=== PATIENT | female | born 1980 | race Caucasian/White ===

== ENCOUNTER 2018-06-01 20:01 | Emergency (ER) | payer OTHER, MEDICAID, SELFPAY ==
[2018-06-01 20:13] VITALS: BP 157/88; PULSE 117; RESP 20; TEMP 37.2; O2SAT 98; BMI 52.7
--- NOTE | 2018-06-01 20:18 | DI.RAD.S_ITS ---
PROCEDURE: XR CHEST 2V INDICATIONS: shortness of breath TECHNIQUE: 2 views of the chest were acquired. COMPARISON: [facility], XR CHEST 2V, 11/26/2017, 12:22. [facility], CHEST 1 VIEW, 04/07/2017, 16:36. [facility], , CHEST 2 VIEW, 10/02/2013, 19:48. [facility], CHEST 2 VIEW, 01/23/2012, 10:07. FINDINGS: Surgical changes and devices: None. Lungs and pleura: No pleural effusions or pneumothorax. Lungs are clear. Mediastinum: Mediastinal contours are normal. Heart size is normal. Bones and chest wall: No suspicious bony abnormalities. Soft tissues appear unremarkable. IMPRESSION: No acute cardiopulmonary disease. Dictated by: Joe Galarza M.D. on 06/01/2018 at 21:02 Approved by: Joe Galarza M.D. on 06/01/2018 at 21:04
--- NOTE | 2018-06-01 23:47 | ED.SOB ---
HPI - SOB/Dyspnea General Chief Complaint: Shortness of Breath/Dyspnea Stated Complaint: COUGH, CHEST PRESSURE, WOUND ON BACK Time Seen by Provider: 06/01/18 23:06 Source: patient Mode of arrival: ambulatory Limitations: no limitations History of Present Illness This is a 37-year-old female comes emergency department with complaint of some intermittent, tightness in her chest, she has had a cough that has been nonproductive. She has not had any fever she is aware of she has not noticed any sweats or chills. She said a little bit of upper respiratory congestion but mild. Patient states that she has felt short of breath intermittently. She is denying chest pain currently. She had some nausea no vomiting. No GI or urinary symptoms. She does have a history of diabetes and takes metformin and pioglitazone. Patient is also complaining of an abrasion or wound on her back she states she is not sure if it is any worse. she is also currently homeless she has been staying in her truck. Related Data Home Medications Medication Instructions Recorded Confirmed metformin [Glucophage XR] 5 tab PO QDAY #0 12/15/11 acetaminophen 1 - 2 tab PO Q6HP PRN #0 04/07/17 buspirone 1.5 tab PO HS #0 04/07/17 cetirizine 10 mg PO QDAY #0 04/07/17 clonazepam 0.5 - 1 mg PO QDAYP #0 04/07/17 clotrimazole 1 gm TOPICAL BID #0 04/07/17 cyclobenzaprine 1 - 2 tab PO TIDP PRN #0 04/07/17 furosemide 80 mg PO BID #0 04/07/17 meloxicam 15 mg PO QDAY #0 04/07/17 montelukast 10 mg PO QDAY #0 04/07/17 pioglitazone 30 mg PO QDAY #0 04/07/17 zolpidem 10 mg PO HSP PRN #0 04/07/17 Previous Rx's Medication Instructions Recorded CHLORHEXIDINE GLUCONATE 15 ml PO BID #473 ml 09/03/16 hydrocodone-acetaminophen [[place]] 1 tab PO Q6H PRN #7 tab 09/03/16 clindamycin HCl 300 mg PO Q6H #28 cap 04/29/17 mupirocin 0 danyelle TOPICAL TID #22 gm 04/29/17 azithromycin See Label Instructions .ROUTE 06/01/18 .COMPLEX #3 tab Allergies Allergy/AdvReac Type Severity Reaction Status Date / Time amoxicillin [From AUGMENTIN] Allergy Unknown Unverified 10/28/17 12:14 clavulanic acid Allergy Unknown Unverified 10/28/17 12:14 [From AUGMENTIN] Sulfa (Sulfonamide Allergy Unknown Unverified 10/28/17 12:14 Antibiotics) [SULFA (SULFONAMIDE ANTIBIOTICS)] Review of Systems Review of Systems All systems reviewed & are unremarkable except as noted in HPI and below Constitutional Denies chills and Denies fever(s) ENT Ears, Nose, Mouth, and Throat: Reports nasal congestion Cardiovascular Denies chest pain, Denies dyspnea and Reports dyspnea on exertion Respiratory Reports chest congestion, Reports cough, Denies excessive phlegm production, Denies pain on inspiration, Denies dyspnea, Reports dyspnea on exertion, Denies stridor and Reports wheezing Gastrointestinal Gastrointestinal: Denies abdominal pain, Denies change in bowel habits, Denies diarrhea, Reports nausea and Denies vomiting Genitourinary Reports as per HPI (currently on menses), Denies urinary frequency and Denies difficulty voiding Integumentary/Breasts Reports as per HPI (healing lesion) Allergic/Immunologic Reports wheezing PFSH Social History Smoking Status: Current every day smoker Exam Narrative Exam Narrative: GEN: Obese female, alert and oriented x 3, patient appears to be in mild distress. HEENT: Atraumatic, pupils are equal round reactive to light, extraocular movements are intact, nares clear rhinorrhea bilaterally, TMs are clear with no fluid. Throat is clear without any exudates, erythema, tonsillar enlargement or uvular deviation, patient has extensive facial hair HEART: Regular rate and rhythm without murmur, clicks, rubs. No carotid bruits, pulses are equal in upper and lower extremities LUNGS:Lungs clear to auscultation, no wheezes, rales, crackles, chest moves symmetrically ABD:bowel sounds normal, soft, non-tender, no guarding, rebound, rigidity, no masses noted, no hepatosplenomegaly :No CVA tenderness MSCL: Non-tender, no muscle atrophy full range of motion, normal gait NEURO:CN 2-12 intact, sensation normal SKIN: patient has a a linear wound on her right flank, Um it has about 4 cm in length and an additional 1 cm adjacent. It is in the horizontal plane. There is some mild skin breakdown through the superficial skin but no subcutaneous breakdown. The skin itself appears angry right at the wound but no drainage, it appears fairly scabbed over. There is no surrounding cellulitis or erythema, there is no foul odor, the area is not particularly tender to touch. IT does appear to be right where her pants would tend to rub. Initial Vital Signs Initial Vital Signs: Vital Signs Temperature 99 F 06/01/18 20:13 Pulse Rate 117 H 06/01/18 20:13 Respiratory Rate 20 06/01/18 20:13 Blood Pressure 157/88 H 06/01/18 20:13 Pulse Oximetry 98 06/01/18 20:13 Course Orders Ordered: ED Orders 06/01/18 20:18 Consult to Respiratory Therapy Evaluate & Treat XR chest 2V Stat EKG-12 Lead Stat Discontinued Medications Azithromycin (Zithromax) 500 mg PO NOW ONE Stop: 06/02/18 00:14 Last Admin: 06/02/18 00:15 Dose: 500 mg Azithromycin (Zithromax) 500 mg PO NOW ONE Stop: 06/02/18 00:14 Last Admin: 06/02/18 00:16 Dose: Not Given Prednisone (Deltasone 20 Mg Prepack) 1 bottle MISC SEEINSTR ONE Stop: 06/02/18 00:14 Last Admin: 06/02/18 00:15 Dose: 1 bottle Vital Signs - 8 hr 06/02/18 00:20 Pulse Rate 116 H Respiratory Rate 18 Blood Pressure 149/86 H Pulse Oximetry 97 MDM - SOB/Dyspnea Imaging Data Chest x-ray: Radiologist's impression: [address] [address] XRay Report Signed Patient: Roxane Hanley [facility]#: [id number] : 1980Acct:[id number] Age/Sex: 37 / FDate of Service: 06/01/18 Loc: ED Accession Number: [id number] Procedure: XR chest 2V Ordering Provider: Shonda Vazquez PROCEDURE: XR CHEST 2V INDICATIONS: shortness of breath TECHNIQUE: 2 views of the chest were acquired. [facility], CR, CHEST 1 VIEW, 04/07/2017, 16:36. [facility], CR, CHEST 2 VIEW, 10/02/2013, 19:48. [facility], CR, CHEST 2 VIEW, 01/23/2012, 10:07. FINDINGS: Surgical changes and devices: None. Lungs and pleura: No pleural effusions or pneumothorax. Lungs are clear. Mediastinum: Mediastinal contours are normal. Heart size is normal. Bones and chest wall: No suspicious bony abnormalities. Soft tissues appear unremarkable. IMPRESSION: No acute cardiopulmonary disease. Dictated by: Joe Galarza M.D. on 06/01/2018 at 21:02 Approved by: Joe Galarza M.D. on 06/01/2018 at 21:04 ECG Data Attestation: I personally reviewed and interpreted this ECG as follows: Prior ECG tracings: available for review Interpretation: Sinus tachycardia rate of 112 P are 166 QRS 89 and QTC of 381. No ST elevation or depression. Similar to prior EKG from 04/07/17 [facility] Narrative Medical decision making narrative: Patient has an albuterol inhaler which she has found helpful for her symptoms she had treatment that she gave herself about an hour or 2 prior to arrival. Patient has not had fevers, chest x-ray is negative. I suspect she has bronchitis she states she has had some asthma issues in the past. We discussed doing a short course of steroids. This will elevate her blood sugars and she is aware. Discharge Plan Departure Patient Disposition: Home Clinical Impression: Bronchitis Discharge Date/Time: 06/02/18 00:20 Interventions: ED Discharge Assessment Last Done: 06/02/18 00:20 Instructions: Acute Bronchitis Activity Restrictions/Additional Instructions: Follow-up in next 3-5 days for recheck if her symptoms are not improving. Take 3 tablets of the 10 mg prednisone once daily x3 days. Take azithromycin until completely gone. Return to the emergency department for fevers greater than 100.4, persistent difficulty with breathing, chest pain, shortness of breath, passing out, or other new or concerning symptoms. Prescriptions: New azithromycin 500 mg tablet See Label Instructions .ROUTE .COMPLEX Qty: 3 RF: 0 No Action metformin [Glucophage XR] 500 MG tablet extended release 24 hr 5 tab PO QDAY Qty: 0 RF: 0 hydrocodone-acetaminophen [[place]] 5 MG/325 MG tablet 1 tab PO Q6H PRNQty: 7 RF: 0 CHLORHEXIDINE GLUCONATE 15 ml PO BID Qty: 473 RF: 0 furosemide 80 MG tablet 80 mg PO BID Qty: 0 RF: 0 pioglitazone 30 MG tablet 30 mg PO QDAY Qty: 0 RF: 0 cetirizine 10 MG tablet 10 mg PO QDAY Qty: 0 RF: 0 montelukast 10 MG tablet 10 mg PO QDAY Qty: 0 RF: 0 buspirone 15 MG tablet 1.5 tab PO HS Qty: 0 RF: 0 zolpidem 10 MG tablet 10 mg PO HSP PRNQty: 0 RF: 0 acetaminophen 500 MG tablet 1 - 2 tab PO Q6HP PRNQty: 0 RF: 0 meloxicam 15 MG tablet 15 mg PO QDAY Qty: 0 RF: 0 clonazepam 0.5 MG tablet 0.5 - 1 mg PO QDAYP Qty: 0 RF: 0 cyclobenzaprine 5 MG tablet 1 - 2 tab PO TIDP PRNQty: 0 RF: 0 clotrimazole 1 % cream 1 gm Topical BID Qty: 0 RF: 0 mupirocin 2 % ointment Topical TID Qty: 22 RF: 0 clindamycin HCl 300 MG capsule 300 mg PO Q6H Qty: 28 RF: 0
--- NOTE | 2018-06-02 | ED_ITS ---
HPI - SOB/Dyspnea General Chief Complaint: Shortness of Breath/Dyspnea Stated Complaint: COUGH, CHEST PRESSURE, WOUND ON BACK Time Seen by Provider: 06/01/18 23:06 Source: patient Mode of arrival: ambulatory Limitations: no limitations History of Present Illness This is a 37-year-old female comes emergency department with complaint of some intermittent, tightness in her chest, she has had a cough that has been nonproductive. She has not had any fever she is aware of she has not noticed any sweats or chills. She said a little bit of upper respiratory congestion but mild. Patient states that she has felt short of breath intermittently. She is denying chest pain currently. She had some nausea no vomiting. No GI or urinary symptoms. She does have a history of diabetes and takes metformin and pioglitazone. Patient is also complaining of an abrasion or wound on her back she states she is not sure if it is any worse. she is also currently homeless she has been staying in her truck. Related Data Home Medications Medication Instructions Recorded Confirmed metformin [Glucophage XR] 5 tab PO QDAY #0 12/15/11 acetaminophen 1 - 2 tab PO Q6HP PRN #0 04/07/17 buspirone 1.5 tab PO HS #0 04/07/17 cetirizine 10 mg PO QDAY #0 04/07/17 clonazepam 0.5 - 1 mg PO QDAYP #0 04/07/17 clotrimazole 1 gm TOPICAL BID #0 04/07/17 cyclobenzaprine 1 - 2 tab PO TIDP PRN #0 04/07/17 furosemide 80 mg PO BID #0 04/07/17 meloxicam 15 mg PO QDAY #0 04/07/17 montelukast 10 mg PO QDAY #0 04/07/17 pioglitazone 30 mg PO QDAY #0 04/07/17 zolpidem 10 mg PO HSP PRN #0 04/07/17 Previous Rx's Medication Instructions Recorded CHLORHEXIDINE GLUCONATE 15 ml PO BID #473 ml 09/03/16 hydrocodone-acetaminophen [[place]] 1 tab PO Q6H PRN #7 tab 09/03/16 clindamycin HCl 300 mg PO Q6H #28 cap 04/29/17 mupirocin 0 danyelle TOPICAL TID #22 gm 04/29/17 azithromycin See Label Instructions .ROUTE 06/01/18 .COMPLEX #3 tab Allergies Allergy/AdvReac Type Severity Reaction Status Date / Time amoxicillin [From AUGMENTIN] Allergy Unknown Unverified 10/28/17 12:14 clavulanic acid Allergy Unknown Unverified 10/28/17 12:14 [From AUGMENTIN] Sulfa (Sulfonamide Allergy Unknown Unverified 10/28/17 12:14 Antibiotics) [SULFA (SULFONAMIDE ANTIBIOTICS)] Review of Systems Review of Systems All systems reviewed & are unremarkable except as noted in HPI and below Constitutional Denies chills and Denies fever(s) ENT Ears, Nose, Mouth, and Throat: Reports nasal congestion Cardiovascular Denies chest pain, Denies dyspnea and Reports dyspnea on exertion Respiratory Reports chest congestion, Reports cough, Denies excessive phlegm production, Denies pain on inspiration, Denies dyspnea, Reports dyspnea on exertion, Denies stridor and Reports wheezing Gastrointestinal Gastrointestinal: Denies abdominal pain, Denies change in bowel habits, Denies diarrhea, Reports nausea and Denies vomiting Genitourinary Reports as per HPI (currently on menses), Denies urinary frequency and Denies difficulty voiding Integumentary/Breasts Reports as per HPI (healing lesion) Allergic/Immunologic Reports wheezing PFSH Social History Smoking Status: Current every day smoker Exam Narrative Exam Narrative: GEN: Obese female, alert and oriented x 3, patient appears to be in mild distress. HEENT: Atraumatic, pupils are equal round reactive to light, extraocular movements are intact, nares clear rhinorrhea bilaterally, TMs are clear with no fluid. Throat is clear without any exudates, erythema, tonsillar enlargement or uvular deviation, patient has extensive facial hair HEART: Regular rate and rhythm without murmur, clicks, rubs. No carotid bruits , pulses are equal in upper and lower extremities LUNGS:Lungs clear to auscultation, no wheezes, rales, crackles, chest moves symmetrically ABD:bowel sounds normal, soft, non-tender, no guarding, rebound, rigidity, no masses noted, no hepatosplenomegaly :No CVA tenderness MSCL: Non-tender, no muscle atrophy full range of motion, normal gait NEURO:CN 2-12 intact, sensation normal SKIN: patient has a a linear wound on her right flank, Um it has about 4 cm in length and an additional 1 cm adjacent. It is in the horizontal plane. There is some mild skin breakdown through the superficial skin but no subcutaneous breakdown. The skin itself appears angry right at the wound but no drainage, it appears fairly scabbed over. There is no surrounding cellulitis or erythema , there is no foul odor, the area is not particularly tender to touch. IT does appear to be right where her pants would tend to rub. Initial Vital Signs Initial Vital Signs: Vital Signs Temperature 99 F 06/01/18 20:13 Pulse Rate 117 H 06/01/18 20:13 Respiratory Rate 20 06/01/18 20:13 Blood Pressure 157/88 H 06/01/18 20:13 Pulse Oximetry 98 06/01/18 20:13 Course Orders Ordered: ED Orders 06/01/18 20:18 Consult to Respiratory Therapy Evaluate & Treat XR chest 2V Stat EKG-12 Lead Stat Discontinued Medications Azithromycin (Zithromax) 500 mg PO NOW ONE Stop: 06/02/18 00:14 Last Admin: 06/02/18 00:15 Dose: 500 mg Azithromycin (Zithromax) 500 mg PO NOW ONE Stop: 06/02/18 00:14 Last Admin: 06/02/18 00:16 Dose: Not Given Prednisone (Deltasone 20 Mg Prepack) 1 bottle MISC SEEINSTR ONE Stop: 06/02/18 00:14 Last Admin: 06/02/18 00:15 Dose: 1 bottle Vital Signs - 8 hr 06/02/18 00:20 Pulse Rate 116 H Respiratory Rate 18 Blood Pressure 149/86 H Pulse Oximetry 97 MDM - SOB/Dyspnea Imaging Data Chest x-ray: Radiologist's impression: [address] [address] XRay Report Signed Patient: Roxane Hanley [facility]#: [id number] : 1980Acct:[id number] Age/Sex: 37 / FDate of Service: 06/01/18 Loc: ED Accession Number: [id number] Procedure: XR chest 2V Ordering Provider: Shonda Vazquez PROCEDURE: XR CHEST 2V INDICATIONS: shortness of breath TECHNIQUE: 2 views of the chest were acquired. [facility] 12[facility]. [facility], CR, CHEST 1 VIEW, 04/07/2017, 16:36. [facility], CR, CHEST 2 VIEW, 10/02/2013, 19:48. [facility], CR, CHEST 2 VIEW, 01/23/2012, 10:07. FINDINGS: Surgical changes and devices: None. Lungs and pleura: No pleural effusions or pneumothorax. Lungs are clear. Mediastinum: Mediastinal contours are normal. Heart size is normal. Bones and chest wall: No suspicious bony abnormalities. Soft tissues appear unremarkable. IMPRESSION: No acute cardiopulmonary disease. Dictated by: Joe Galarza M.D. on 06/01/2018 at 21:02 Approved by: Joe Galarza M.D. on 06/01/2018 at 21:04 ECG Data Attestation: I personally reviewed and interpreted this ECG as follows: Prior ECG tracings: available for review Interpretation: Sinus tachycardia rate of 112 P are 166 QRS 89 and QTC of 381. No ST elevation or depression. Similar to prior EKG from 04/07/17 [facility] Narrative Medical decision making narrative: Patient has an albuterol inhaler which she has found helpful for her symptoms she had treatment that she gave herself about an hour or 2 prior to arrival. Patient has not had fevers, chest x-ray is negative. I suspect she has bronchitis she states she has had some asthma issues in the past. We discussed doing a short course of steroids. This will elevate her blood sugars and she is aware. Discharge Plan Departure Patient Disposition: Home Clinical Impression: Bronchitis Discharge Date/Time: 06/02/18 00:20 Interventions: ED Discharge Assessment Last Done: 06/02/18 00:20 Instructions: Acute Bronchitis Activity Restrictions/Additional Instructions: Follow-up in next 3-5 days for recheck if her symptoms are not improving. Take 3 tablets of the 10 mg prednisone once daily x3 days. Take azithromycin until completely gone. Return to the emergency department for fevers greater than 100.4, persistent difficulty with breathing, chest pain, shortness of breath, passing out, or other new or concerning symptoms. Prescriptions: New azithromycin 500 mg tablet See Label Instructions .ROUTE .COMPLEX Qty: 3 RF: 0 No Action metformin [Glucophage XR] 500 MG tablet extended release 24 hr 5 tab PO QDAY Qty: 0 RF: 0 hydrocodone-acetaminophen [[place]] 5 MG/325 MG tablet 1 tab PO Q6H PRNQty: 7 RF: 0 CHLORHEXIDINE GLUCONATE 15 ml PO BID Qty: 473 RF: 0 furosemide 80 MG tablet 80 mg PO BID Qty: 0 RF: 0 pioglitazone 30 MG tablet 30 mg PO QDAY Qty: 0 RF: 0 cetirizine 10 MG tablet 10 mg PO QDAY Qty: 0 RF: 0 montelukast 10 MG tablet 10 mg PO QDAY Qty: 0 RF: 0 buspirone 15 MG tablet 1.5 tab PO HS Qty: 0 RF: 0 zolpidem 10 MG tablet 10 mg PO HSP PRNQty: 0 RF: 0 acetaminophen 500 MG tablet 1 - 2 tab PO Q6HP PRNQty: 0 RF: 0 meloxicam 15 MG tablet 15 mg PO QDAY Qty: 0 RF: 0 clonazepam 0.5 MG tablet 0.5 - 1 mg PO QDAYP Qty: 0 RF: 0 cyclobenzaprine 5 MG tablet 1 - 2 tab PO TIDP PRNQty: 0 RF: 0 clotrimazole 1 % cream 1 gm Topical BID Qty: 0 RF: 0 mupirocin 2 % ointment Topical TID Qty: 22 RF: 0 clindamycin HCl 300 MG capsule 300 mg PO Q6H Qty: 28 RF: 0
[2018-06-02] MEDS: predniSONE 20 MG PREPACK 1 BOTTLE MISC (00:15)
[2018-06-02] MEDS: AZITHROMYCIN 250 MG TABLET 500 MG PO (00:15)
[2018-06-02 00:20] VITALS: BP 149/86; PULSE 116; RESP 18; O2SAT 97
== END 2018-06-02 00:20 | disposition home or self-care (01) ==
PROVIDERS: Emergency Provider Emergency Medicine
DX: J40 Bronchitis, not specified as acute or chronic (principal)
CPT/HCPCS: 71046; 93005; 99282; 99284

== ENCOUNTER 2018-06-03 21:23 | Emergency (ER) | payer OTHER, MEDICAID, SELFPAY ==
--- NOTE | 2018-06-03 21:34 | DI.RAD.S_ITS ---
PROCEDURE: XR CHEST 1V INDICATIONS: Cough with chest pain TECHNIQUE: One view of the chest was acquired. COMPARISON: [facility], CR, XR CHEST 2V, 06/01/2018, 20:21. FINDINGS: Surgical changes and devices: None. Lungs and pleura: No pleural effusions or pneumothorax. Lungs are clear. Mediastinum: Mediastinal contours appear normal. Heart size is normal. Bones and chest wall: No suspicious bony lesions. Overlying soft tissues appear unremarkable. IMPRESSION: No acute process. Dictated by: Emeka Berger M.D. on 06/03/2018 at 21:54 Approved by: Emeka Berger M.D. on 06/03/2018 at 21:54
[2018-06-03 21:35] VITALS: BP 128/104; PULSE 122; RESP 20; TEMP 36.7; O2SAT 96; BMI 52.7
--- NOTE | 2018-06-03 21:43 | ED.CHESTPAIN ---
HPI - Chest Pain General Chief Complaint: Chest Pain Stated Complaint: COUGH, LT LUNG PAIN Time Seen by Provider: 06/03/18 21:33 Source: patient Mode of arrival: ambulatory Limitations: no limitations History of Present Illness HPI narrative: Patient is a 37-year-old female seen here in the emergency department a couple days ago and diagnosed with bronchitis. She was sent home with a prescription for an albuterol inhaler and also prednisone. She states she has taken 1 dose of the prednisone but did not take it today because she states that after she took the prednisone her throat started to swell. She states she has not been using her inhaler because it is difficult for her to take a big deep breath. No fevers. She states she is currently on azithromycin. Came in today because she has continued symptoms. Related Data Home Medications Medication Instructions Recorded Confirmed metformin [Glucophage XR] 5 tab PO QDAY #0 12/15/11 acetaminophen 1 - 2 tab PO Q6HP PRN #0 04/07/17 buspirone 1.5 tab PO HS #0 04/07/17 cetirizine 10 mg PO QDAY #0 04/07/17 clonazepam 0.5 - 1 mg PO QDAYP #0 04/07/17 clotrimazole 1 gm TOPICAL BID #0 04/07/17 cyclobenzaprine 1 - 2 tab PO TIDP PRN #0 04/07/17 furosemide 80 mg PO BID #0 04/07/17 meloxicam 15 mg PO QDAY #0 04/07/17 montelukast 10 mg PO QDAY #0 04/07/17 pioglitazone 30 mg PO QDAY #0 04/07/17 zolpidem 10 mg PO HSP PRN #0 04/07/17 Previous Rx's Medication Instructions Recorded CHLORHEXIDINE GLUCONATE 15 ml PO BID #473 ml 09/03/16 hydrocodone-acetaminophen [[place]] 1 tab PO Q6H PRN #7 tab 09/03/16 clindamycin HCl 300 mg PO Q6H #28 cap 04/29/17 mupirocin 0 danyelle TOPICAL TID #22 gm 04/29/17 azithromycin See Label Instructions .ROUTE 06/01/18 .COMPLEX #3 tab guaifenesin 200 mg PO Q4H PRN #20 tab 06/04/18 Allergies Allergy/AdvReac Type Severity Reaction Status Date / Time amoxicillin [From AUGMENTIN] Allergy Unknown Verified 06/03/18 21:35 clavulanic acid Allergy Unknown Verified 06/03/18 21:35 [From AUGMENTIN] Sulfa (Sulfonamide Allergy Unknown Verified 06/03/18 21:35 Antibiotics) [SULFA (SULFONAMIDE ANTIBIOTICS)] Review of Systems Constitutional Reports fatigue and Denies fever(s) Cardiovascular Denies chest pain, Reports leg edema and Reports dyspnea Respiratory Reports chest congestion, Reports cough, Reports pain with cough and Reports dyspnea Gastrointestinal Gastrointestinal: Denies abdominal pain, Denies nausea and Denies vomiting Musculoskeletal Denies myalgias and Denies arthralgias Integumentary/Breasts Denies lesions and Denies rash Endocrine Reports fatigue PFSH Medical History Diabetes (Acute) Edema (Acute) Insomnia (Acute) Surgical History No pertinent past surgical history (Acute) Social History Smoking Status: Current every day smoker Exam Initial Vital Signs Initial Vital Signs: Vital Signs Temperature 98.0 F 06/03/18 21:35 Pulse Rate 122 H 06/03/18 21:35 Respiratory Rate 20 06/03/18 21:35 Blood Pressure 128/104 H 06/03/18 21:35 Pulse Oximetry 96 06/03/18 21:35 Const General: cooperative, healthy appearing, comfortable and well developed [facility] Head: normal to inspection and normocephalic Resp Effort & Inspection: normal respiratory effort, no audible wheezes, no cough, no grunting and not labored Auscultation: clear to auscultation bilaterally Cardio Rate: bradycardic Rhythm: regular rhythm Pulses: radial pulses present Skin Rashes: no rashes Hair: other (Extensive facial hair) Neuro General: alert, awake and oriented x3 Extrem General: normal to inspection and capillary refill normal Psych Appearance: grossly normal and well kempt Course Orders Ordered: ED Orders 06/03/18 21:34 XR chest 1V Stat 06/03/18 21:35 EKG-12 Lead Stat 06/03/18 22:05 CT angio chest PE protocol Stat 06/03/18 22:25 B Type Natriuretic Peptide Stat Basic Metabolic Panel Stat Complete Blood Count AUTO DIFF Stat Troponin I Stat Discontinued Medications Sodium Chloride (Normal Saline 0.9%) 1,000 mls @ 1,000 mls/hr IV BOLUS ONE Stop: 06/03/18 23:04 Last Infusion: 06/04/18 01:08 Dose: 0 mls/hr Admin: 06/03/18 22:35 Dose: 1,000 mls/hr Vital Signs - 8 hr 06/03/18 21:35 06/03/18 22:37 06/03/18 23:20 Temperature 98.0 F Pulse Rate 122 H 110 H 103 H Respiratory Rate 20 20 Blood Pressure 128/104 H Blood Pressure [Right Arm] 114/69 119/61 Pulse Oximetry 96 97 98 06/04/18 01:01 06/04/18 01:08 Temperature Pulse Rate 93 H 100 H Respiratory Rate 18 Blood Pressure 107/65 Blood Pressure [Right Arm] 107/65 Pulse Oximetry 95 95 MDM - Chest Pain Lab Data Attestation: I reviewed the patient's lab results. Result diagrams: 06/03/18 22:25 06/03/18 22:25 Lab Results 06/03/18 06/03/18 Range/Units 22:25 22:25 WBC 10.0 (4.5-11.0) X10^3/uL RBC 4.50 (4.0-5.2) X10^6/uL Hgb 13.3 (12.0-16.0) g/dL Hct 38.4 (36-46) % MCV 85.3 (80-100) fL MCH 29.5 (26-34) PG MCHC 34.6 (30-36) % RDW 12.8 (11.6-14.8) % Plt Count 267 (150-400) X10^3/uL Neut % (Auto) 70.5 (50-75) % Lymph % (Auto) 22.7 L (25-40) % Summers % (Auto) 5.0 (3-14) % Eos % (Auto) 0.9 L (2-4) % Baso % (Auto) 0.9 (0-2) % Neut # (Auto) 7100 H (6670-1126) /uL Sodium 138 (137-145) mmol/L Potassium 3.6 (3.4-5.1) mmol/L Chloride 103 (98-107) mmol/L Carbon Dioxide 23 (22-32) mmol/L BUN 10 (7-17) mg/dL Creatinine 0.50 L (0.52-1.04) mg/dL Estimated GFR > 60.0 (>60) mL/min BUN/Creatinine Ratio 20.0 (6-22) Glucose 135 H (70-100) mg/dL Calcium 8.5 (8.4-10.2) mg/dL Troponin I < 0.012 (0.01-0.034) ng/mL B-Natriuretic Peptide < 100.0 (<100) Imaging Data CT scan - chest: Radiologist's impression: No definitive central pulmonary embolus. Suboptimal opacification of the pulmonary arterial vasculature Chest x-ray: Attestation: I personally reviewed and interpreted this imaging study as follows: My impression: No pneumonia No pneumothorax Normal size heart ECG Data Attestation: I personally reviewed and interpreted this ECG as follows: Prior ECG tracings: not available for review Interpretation: Sinus tachycardia Ventricular rate of 106 Normal axis Normal QRS Normal QTC No ST T wave changes MDM Narrative Medical decision making narrative: Patient without signs of pulmonary embolism on the CT scan. Chest x-ray is unremarkable. Labs unremarkable. EKG unremarkable except for being tachycardic. Patient is currently on antibiotics. She also has steroids and inhaler at home. No indication to change her antibiotics. Patient is stable. Not in respiratory distress. Will hold on further workup for now. Patient was given return precautions. She expressed understanding and agreement with plan. Discharge Plan Departure Patient Disposition: Home Clinical Impression: Bronchitis Discharge Date/Time: 06/04/18 01:09 Interventions: ED Discharge Assessment Last Done: 06/04/18 01:08 Instructions: Acute Bronchitis, DI for Viral Upper Respiratory Infection -- Adult Activity Restrictions/Additional Instructions: Recommend you continue all of your medications as directed. Call your primary care doctor for a follow-up. Return to the emergency department for any new or worsening symptoms Prescriptions: New guaifenesin 200 mg tablet 200 mg PO Q4H PRN (Reason: cold symptoms) Qty: 20 RF: 0 No Action metformin [Glucophage XR] 500 MG tablet extended release 24 hr 5 tab PO QDAY Qty: 0 RF: 0 hydrocodone-acetaminophen [[place]] 5 MG/325 MG tablet 1 tab PO Q6H PRNQty: 7 RF: 0 CHLORHEXIDINE GLUCONATE 15 ml PO BID Qty: 473 RF: 0 furosemide 80 MG tablet 80 mg PO BID Qty: 0 RF: 0 pioglitazone 30 MG tablet 30 mg PO QDAY Qty: 0 RF: 0 cetirizine 10 MG tablet 10 mg PO QDAY Qty: 0 RF: 0 montelukast 10 MG tablet 10 mg PO QDAY Qty: 0 RF: 0 buspirone 15 MG tablet 1.5 tab PO HS Qty: 0 RF: 0 zolpidem 10 MG tablet 10 mg PO HSP PRNQty: 0 RF: 0 acetaminophen 500 MG tablet 1 - 2 tab PO Q6HP PRNQty: 0 RF: 0 meloxicam 15 MG tablet 15 mg PO QDAY Qty: 0 RF: 0 clonazepam 0.5 MG tablet 0.5 - 1 mg PO QDAYP Qty: 0 RF: 0 cyclobenzaprine 5 MG tablet 1 - 2 tab PO TIDP PRNQty: 0 RF: 0 clotrimazole 1 % cream 1 gm Topical BID Qty: 0 RF: 0 mupirocin 2 % ointment Topical TID Qty: 22 RF: 0 clindamycin HCl 300 MG capsule 300 mg PO Q6H Qty: 28 RF: 0 azithromycin 500 mg tablet See Label Instructions .ROUTE .COMPLEX Qty: 3 RF: 0
--- NOTE | 2018-06-03 21:51 | PC.NURSE ---
Pt was seen here two days ago with same symptoms. DX with bronchitis and sent home with prednisone. Pt states since taking prednisone, he feels like he has increased swelling in his throat. c/o difficulty swallowing . Has pringles and 2L soda at bedside. states chips is the only thing that he can tolerate swallowing. States original flu like symptoms first began at the end of April and there hasn't been any improvement. Did not take his prednisone today due to swelling in throat.
--- NOTE | 2018-06-03 22:05 | DI.CT.S_ITS ---
PROCEDURE: CT ANGIO CHEST PE PROTOCOL INDICATIONS: Chest pain, shortness of breath, tachycardia TECHNIQUE: After the administration of intravenous contrast, 2 mm thick sections acquired from the pulmonary apices to the posterior costophrenic angles. 3-dimensional maximum intensity projection (MIP) coronal and sagittal reformats were then acquired through the thorax. For radiation dose reduction, the following was used: automated exposure control, adjustment of mA and/or kV according to patient size. COMPARISON: [facility], CR, XR CHEST 1V, 06/03/2018, 21:40. FINDINGS: Image quality: Suboptimal due to poor opacification of the distal subsegmental pulmonary arteries Pulmonary arteries: Central pulmonary arteries are normal in size, and demonstrate no intraluminal filling defects to suggest gross pulmonary embolism. However, the distal subsegmental pulmonary arteries are not well evaluated due to incomplete opacification Lungs and pleura: Lungs are clear. No pleural effusions or pneumothorax. Central and peripheral airways are patent. Mediastinum: Heart size is normal, without pericardial effusion. No mediastinal or hilar adenopathy. Thoracic aorta is normal in caliber and enhancement. No evidence of aortic dissection or aneurysm. Esophagus is normal in caliber, without hiatal hernia. Bones and chest wall: No suspicious bony lesions. Ribs and thoracic spine appear intact throughout. Thyroid gland grossly unremarkable. No axillary or supraclavicular adenopathy. Abdomen: Visualized upper abdominal solid organs appear normal in the early arterial phase of enhancement. IMPRESSION: No gross or central pulmonary embolism however the distal subsegmental pulmonary arteries are not well evaluated due to poor contrast opacification. If there is sufficient clinical indication, further risk stratification with lower extremity ultrasound for DVT assessment could be performed, versus nuclear medicine V/Q scanning. No acute consolidation. Dictated by: Migel Gutierrez M.D. on 06/04/2018 at 7:31 Approved by: Migel Gutierrez M.D. on 06/04/2018 at 7:35
[2018-06-03] MEDS: SODIUM CHLORIDE 0.9% 1,000 ML 1000 ML IV (22:35)
[2018-06-03 22:37] VITALS: BP 114/69; PULSE 110; O2SAT 97
[2018-06-03 22:39] LABS: Add Manual Diff / Slide Review NO; Basophils Percent Auto 0.9 % (0-2); Eosinophils Percent Auto 0.9 % (2-4); Hematocrit 38.4 % (36-46); Hemoglobin 13.3 g/dL (12.0-16.0); Lymphocytes Percent Auto 22.7 % (25-40); Mean Corpuscular HGB Conc 34.6 % (30-36); Mean Corpuscular Hemoglobin 29.5 PG (26-34); Mean Corpuscular Volume 85.3 fL (80-100); Neutrophils Absolute Auto 7100 /uL (3000-5900); Neutrophils Percent Auto 70.5 % (50-75); Platelet Count 267 X10^3/uL (150-400); Red Cell Distribution Width 12.8 % (11.6-14.8)
[2018-06-03 22:47] LABS: HEMOLYSIS 28 (0-50); Sodium 138 mmol/L (137-145)
[2018-06-03 22:51] LABS: Blood Urea Nitrogen 10 mg/dL (7-17); Calcium 8.5 mg/dL (8.4-10.2); Carbon Dioxide 23 mmol/L (22-32); Chloride 103 mmol/L (98-107); Estimated Glomerular Filt Rate > 60.0 mL/min (>60); Glucose 135 mg/dL (70-100); Potassium 3.6 mmol/L (3.4-5.1)
[2018-06-03 23:02] LABS: Troponin I < 0.012 ng/mL (0.01-0.034)
[2018-06-03 23:07] LABS: B Type Natriuretic Peptide < 100.0 (<100)
[2018-06-03 23:20] VITALS: BP 119/61; PULSE 103; RESP 20; O2SAT 98
[2018-06-04 01:01] VITALS: BP 107/65; PULSE 93; O2SAT 95
[2018-06-04 01:08] VITALS: BP 107/65; PULSE 100; RESP 18; O2SAT 95
== END 2018-06-04 01:09 | disposition home or self-care (01) ==
PROVIDERS: Emergency Provider Emergency Medicine
DX: J40 Bronchitis, not specified as acute or chronic (principal)
CPT/HCPCS: 36591; 71045; 71275; 80048; 83880; 84484; 85025; 93005; 96360; 96361; 99283; 99285; Q9967

== ENCOUNTER 2019-04-15 15:12 | Emergency (ER) | payer OTHER, MEDICAID, SELFPAY ==
[2019-04-15 15:28] VITALS: BP 145/68; PULSE 115; RESP 28; TEMP 36.4; O2SAT 98; BMI 58.8
[2019-04-15 16:58] VITALS: PULSE 100; RESP 18; O2SAT 99
[2019-04-15 16:59] LABS: Add Manual Diff / Slide Review NO; Basophils Absolute Auto 100 /uL (0-100); Basophils Percent Auto 0.6 % (0-2); Eosinophils Absolute Auto 100 /uL (0-450); Eosinophils Percent Auto 1.7 % (2-4); Hematocrit 39.8 % (36-46); Hemoglobin 13.1 g/dL (12.0-16.0); Lymphocytes Absolute Auto 2200 /uL (1100-4500); Lymphocytes Percent Auto 26.1 % (25-40); Mean Corpuscular Hemoglobin 27.3 PG (26-34); Mean Corpuscular Volume 82.8 fL (80-100); Monocytes Absolute Auto 500 /uL (0-900); Monocytes Percent Auto 5.5 % (3-14); Neutrophils Absolute Auto 5600 /uL (1500-7000); Neutrophils Percent Auto 66.1 % (50-75); Platelet Count 245 X10^3/uL (150-400); Red Cell Distribution Width 15.7 % (11.6-14.8); White Blood Cell Count 8.5 X10^3/uL (4.5-11.0)
[2019-04-15 17:02] LABS: Pregnancy Test Urine Negative (Negative)
[2019-04-15 17:34] LABS: Lipase 86 U/L (23-300)
[2019-04-15 17:53] LABS: Lactate (Lactic Acid) 1.7 mmol/L (0.7-2.1)
[2019-04-15 17:55] VITALS: BP 120/62; PULSE 104; RESP 17; O2SAT 99
[2019-04-15 17:56] LABS: Procalcitonin < 0.05 ng/mL (<0.5)
--- NOTE | 2019-04-15 17:57 | ED.SKABFB ---
HPI - Skin/Abscess/Foreign Bdy <KATHY Gamboa - Last Filed: 04/16/19 00:19> General Chief complaint: Skin/Abscess/Foreign Body Stated complaint: open sores on thighs and right ankle Time Seen by Provider: 04/15/19 15:22 Source: patient Mode of arrival: Ambulatory Limitations: no limitations History of Present Illness HPI narrative: This is a 38-year-old female, smoker, who presents with significant other with chief complain of excoriated multiple sores on her buttocks and inner thighs and right lateral ankle drainage. Patient reports she also saw blood in her pants and had hematuria 2 days ago which resolved for a day and recurring today. Patient is homeless and her boyfriend states he tried to do his best to take care of her wounds but they do not have adequate supplies for this. Patient reports she was discharged from wound Care Clinic in [facility] after she was treated for a month. She was evaluated with blood test and abdominal CT scan at [facility] 2 days ago and was advised to follow up with her primary care physician at [facility] and to follow up with child care worker for resources. LMP was 03/22/19, she is sexually active but does not have any concerns for unusual vaginal discharge or complaints. She denies fever, chills, nausea or vomiting, or abdominal or flank pain. Related Data Home Medications Medication Instructions Recorded Confirmed metformin [Glucophage XR] 2,000 mg PO DAILY #0 12/15/11 04/15/19 cetirizine 10 mg PO DAILY #0 04/07/17 04/15/19 meloxicam 15 mg PO DAILY #0 04/07/17 04/15/19 montelukast 10 mg PO DAILY #0 04/07/17 04/15/19 PNV,calcium [id number] acid 1 tab PO DAILY 04/15/19 04/15/19 [PrePlus] acetaminophen [Pain Reliever] 325 mg PO Q4H PRN MDD 6 tabs 04/15/19 04/15/19 cephalexin 500 mg PO QID 04/15/19 clonazepam 0.5 - 1 mg PO PRN PRN MDD 1.5 mg 04/15/19 04/15/19 cyclobenzaprine 10 mg PO TID PRN 04/15/19 04/15/19 pioglitazone 15 mg PO DAILY 04/15/19 04/15/19 venlafaxine 150 mg PO DAILY 04/15/19 04/15/19 Allergies Allergy/AdvReac Type Severity Reaction Status Date / Time amoxicillin [From AUGMENTIN] Allergy Unknown Verified 04/15/19 15:28 clavulanic acid Allergy Unknown Verified 04/15/19 15:28 [From AUGMENTIN] Sulfa (Sulfonamide Allergy Unknown Verified 04/15/19 15:28 Antibiotics) [SULFA (SULFONAMIDE ANTIBIOTICS)] Review of Systems <KATHY Gamboa - Last Filed: 04/16/19 00:19> Review of Systems Narrative: General: Denies fever, chills, fatigue, malaise, sweats. HEENT: Denies sinus pain, ear pain, sore throat, difficulty swallowing, dizziness. Respiratory: Denies dyspnea, cough, wheezing, hemoptysis, sputum. Cardiovascular: Denies chest pain, palpitations, orthopnea, edema. Gastrointestinal: Denies nausea, vomiting, abdominal pain, diarrhea, constipation, melena. : Reports odorous urine and hematuria. Denies dysuria, frequency, incontinence, urinary retention. Musculoskeletal: Denies weakness, joint pain or bony pain. Skin: Reports skin lesions in perineum and inner thighs and right lateral ankle drainage from venous stasis. Denies other rash, skin lesions, or other. Neurologic: Denies weakness, headache, numbness, change in speech, confusion, seizures, incoordination. Psychiatric: No concerning psychosocial issues. 12-point review of systems is negative except for those stated above. PFSH <KATHY Gamboa - Last Filed: 04/16/19 00:19> Medical History (Updated 04/15/19 @ 23:54 by KATHY Gamboa) Asthma (Acute) Diabetes (Acute) Edema (Acute) Fibromyalgia (Acute) Homeless (Acute) Insomnia (Acute) Neuropathy (Acute) Venous stasis (Acute) Surgical History No pertinent past surgical history (Acute) Social History Smoking Status: Current every day smoker Social History household members: significant other housing: homeless Smoking Status: Current every day smoker Exam <KATHY Gamboa - Last Filed: 04/16/19 00:19> Narrative Exam Narrative: GEN: Alert, oriented x 3, well appearing and nourished, and in no acute distress. Head: Normal cephalic, atraumatic. No scalp or temporal tenderness, palpable mass or rash. EYES: Pupils are equal, round, and reactive to light and accommodation. Extraocular muscles are intact bilaterally. There is no subconjunctival hemorrhage, exudate and sclera non-icteric. ENT: Bilateral auditory canals and tympanic membranes clear. Hearing grossly intact. Nose without bleeding, purulent discharge or deviation. Facial sinuses nontender to palpate. Mucous membrane moist, no mucosal lesion. Throat without erythema, tonsillar hypertrophy or exudate. Uvula in midline, airway patent. Neck: Trachea in midline. No JVD, non-tender without lymphadenopathy. No masses or thyroid megaly. Supple, non-tender and no meningeal signs. CARDIAC: Tachycardia without murmurs, gallops, or rubs. No chest wall tenderness. Lower leg edema. No cyanosis or pallor. Capillary refill is less than 2 seconds. RESPIRATORY: Lungs are cleat to auscultate bilaterally. No cough, wheezes, rales, or rhonchi. No stridor, respiratory distress, increase work of breathing, or accessary muscle used. ABD: Abdomen soft, nontender and non-distended. No guarding or rebound tenderness to palpate. Bowel sounds are normal in all 4 quadrants. There is no palpable masses or organomegaly. Pelvic: Noted dark blood from pelvic/vaginal exam. No Cervical motion tenderness. EXT: Full painless ROM of all extremities with no loss of sensation, strength, effusion or edema. SKIN: Open multiple excoriated lesions without induration abscess on perineum and bilateral inner thighs. Lateral ankle open skin lesions and drainage with semi saturated old dressing. Warm, dry, normal color for patient. No erythema, lesions or rash over other visible areas. BACK: Nontender without deformity or crepitance. No flank tenderness. NEUROLOGICAL: Alert and oriented to place, time and person. Sensation and motor function intact bilaterally. No facial droops, dysphasia. PSYCHIATRIC: Good judgement and reason, without hallucinations, abnormal affect or abnormal behaviors during the examination. Initial Vital Signs Initial Vital Signs: Vital Signs Temperature 97.6 F 04/15/19 15:28 Pulse Rate 115 H 04/15/19 15:28 Respiratory Rate 28 H 04/15/19 15:28 Blood Pressure 145/68 H 04/15/19 15:28 Pulse Oximetry 98 04/15/19 15:28 <Dylan Hull DO - Last Filed: 04/19/19 06:39> Initial Vital Signs Initial Vital Signs: Vital Signs Temperature 97.6 F 04/15/19 15:28 Pulse Rate 115 H 04/15/19 15:28 Respiratory Rate 28 H 04/15/19 15:28 Blood Pressure 145/68 H 04/15/19 15:28 Pulse Oximetry 98 04/15/19 15:28 <Jasiel Leonardo DO - Last Filed: 04/23/19 00:07> Initial Vital Signs Initial Vital Signs: Vital Signs Temperature 97.6 F 04/15/19 15:28 Pulse Rate 115 H 04/15/19 15:28 Respiratory Rate 28 H 04/15/19 15:28 Blood Pressure 145/68 H 04/15/19 15:28 Pulse Oximetry 98 04/15/19 15:28 Scores <KATHY Gamboa Last Filed: 04/16/19 00:19> GCS Tasia coma scale eye opening: Spontaneous Tasia coma scale verbal response: Orientated Tasia coma scale motor response: Obey commands Tasia coma scale total score: 15 Course <KATHY Gamboa Last Filed: 04/16/19 00:19> Orders Ordered: Discontinued Medications Cephalexin HCl (Keflex) 500 mg PO NOW ONE Stop: 04/15/19 18:39 Last Admin: 04/15/19 18:47 Dose: 500 mg Documented by: [facility]INGTO Vital Signs Vital signs: Vital Signs - 8 hr 04/15/19 16:58 04/15/19 17:55 04/15/19 18:45 Pulse Rate 100 H 104 H 87 Respiratory Rate 18 17 17 Blood Pressure [Right Arm] 120/62 152/75 H Pulse Oximetry 99 99 96 <DO Lalitha Mckee Last Filed: 04/19/19 06:39> Course Course Narrative: Wound cultures have resulted late this evening. Patient currently on Keflex as prescribed by an outside facility. 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 For this reason I have requested nursing call in Cipro 500 1 PO BID x10 days Orders Ordered: Discontinued Medications Cephalexin HCl (Keflex) 500 mg PO NOW ONE Stop: 04/15/19 18:39 Last Admin: 04/15/19 18:47 Dose: 500 mg Documented by: [facility] Vital Signs Vital signs: Vital Signs - 8 hr 04/15/19 16:58 04/15/19 17:55 04/15/19 18:45 Pulse Rate 100 H 104 H 87 Respiratory Rate 18 17 17 Blood Pressure [Right Arm] 120/62 152/75 H Pulse Oximetry 99 99 96 <Jasiel Leonardo DO - Last Filed: 04/23/19 00:07> Orders Ordered: Discontinued Medications Cephalexin HCl (Keflex) 500 mg PO NOW ONE Stop: 04/15/19 18:39 Last Admin: 04/15/19 18:47 Dose: 500 mg [facility] Vital Signs Vital signs: Vital Signs - 8 hr 04/15/19 16:58 04/15/19 17:55 04/15/19 18:45 Pulse Rate 100 H 104 H 87 Respiratory Rate 18 17 17 Blood Pressure [Right Arm] 120/62 152/75 H Pulse Oximetry 99 99 96 MDM - Skin/Abscess/Foreign Bdy <KATHY Gamboa - Last Filed: 04/16/19 00:19> Differential Diagnosis Differential diagnosis: Likely other (bladder infection, mentrual period, hematuria, cellulitis, sepsis, stasis dermatitis) Medical Records Attestation: I reviewed the patient's medical records. Lab Data Attestation: I reviewed the patient's lab results. Result diagrams: 04/15/19 16:44 Labs: Lab Results 04/15/19 04/15/19 04/15/19 Range/Units 16:30 16:38 16:44 WBC 8.5 (4.5-11.0) X10^3/uL RBC 4.80 (4.0-5.2) X10^6/uL Hgb 13.1 (12.0-16.0) g/dL Hct 39.8 (36-46) % MCV 82.8 (80-100) fL MCH 27.3 (26-34) PG MCHC 33.0 (30-36) % RDW 15.7 H (11.6-14.8) % Plt Count 245 (150-400) X10^3/uL Neut % (Auto) 66.1 (50-75) % Lymph % (Auto) 26.1 (25-40) % Weld % (Auto) 5.5 (3-14) % Eos % (Auto) 1.7 L (2-4) % Baso % (Auto) 0.6 (0-2) % Neut # (Auto) 5600 (5636-3499) /uL Lymph # (Auto) 2200 (6562-6172) /uL Weld # (Auto) 500 (0-900) /uL Eos # (Auto) 100 (0-450) /uL Baso # (Auto) 100 (0-100) /uL Lactate Lipase (23-300) U/L Procalcitonin (<0.5) ng/mL Urine Color Yellow Urine Appearance Clear Urine pH 5.5 (4.5-8.0) Ur Specific [place] 1.010 (1.000-1.035) Urine Protein Trace H (Negative) Urine Glucose (UA) Negative (Negative) g/dL Urine Ketones Negative (NEGATIVE) Urine Occult Blood 3+ H (Negative) Urine Nitrate Negative (Negative) Urine Bilirubin Negative (NEGATIVE) Urine Urobilinogen 0.2 (0.2) E.U./dL Ur Leukocyte Esterase Trace H (NEGATIVE) Urine RBC 10-30/hpf H (0-5/HPF) Urine WBC 1-5/hpf (0-5/HPF) Ur Squamous Epith Cells 5-10 /hpf H (0-5/HPF) Urine Bacteria None seen (None) Ur Culture Indicated? Cult not indicated Urine Test Negative (Negative) 04/15/19 04/15/19 04/15/19 Range/Units 16:44 16:44 16:44 WBC (4.5-11.0) X10^3/uL RBC (4.0-5.2) X10^6/uL Hgb (12.0-16.0) g/dL Hct (36-46) % MCV (80-100) fL MCH (26-34) PG MCHC (30-36) % RDW (11.6-14.8) % Plt Count (150-400) X10^3/uL Neut % (Auto) (50-75) % Lymph % (Auto) (25-40) % Weld % (Auto) (3-14) % Eos % (Auto) (2-4) % Baso % (Auto) (0-2) % Neut # (Auto) (1779-6374) /uL Lymph # (Auto) (8084-0965) /uL Weld # (Auto) (0-900) /uL Eos # (Auto) (0-450) /uL Baso # (Auto) (0-100) /uL Lactate Cancelled Lipase (23-300) U/L Procalcitonin < 0.05 Cancelled (<0.5) ng/mL Urine Color Urine Appearance Urine pH (4.5-8.0) Ur Specific [place] (1.000-1.035) Urine Protein (Negative) Urine Glucose (UA) (Negative) g/dL Urine Ketones (NEGATIVE) Urine Occult Blood (Negative) Urine Nitrate (Negative) Urine Bilirubin (NEGATIVE) Urine Urobilinogen (0.2) E.U./dL Ur Leukocyte Esterase (NEGATIVE) Urine RBC (0-5/HPF) Urine WBC (0-5/HPF) Ur Squamous Epith Cells (0-5/HPF) Urine Bacteria (None) Ur Culture Indicated? Urine Test (Negative) 04/15/19 04/15/19 Range/Units 17:03 17:05 WBC (4.5-11.0) X10^3/uL RBC (4.0-5.2) X10^6/uL Hgb (12.0-16.0) g/dL Hct (36-46) % MCV (80-100) fL MCH (26-34) PG MCHC (30-36) % RDW (11.6-14.8) % Plt Count (150-400) X10^3/uL Neut % (Auto) (50-75) % Lymph % (Auto) (25-40) % Weld % (Auto) (3-14) % Eos % (Auto) (2-4) % Baso % (Auto) (0-2) % Neut # (Auto) (5022-0585) /uL Lymph # (Auto) (0336-1114) /uL Weld # (Auto) (0-900) /uL Eos # (Auto) (0-450) /uL Baso # (Auto) (0-100) /uL Lactate 1.7 Lipase 86 (23-300) U/L Procalcitonin (<0.5) ng/mL Urine Color Urine Appearance Urine pH (4.5-8.0) Ur Specific [place] (1.000-1.035) Urine Protein (Negative) Urine Glucose (UA) (Negative) g/dL Urine Ketones (NEGATIVE) Urine Occult Blood (Negative) Urine Nitrate (Negative) Urine Bilirubin (NEGATIVE) Urine Urobilinogen (0.2) E.U./dL Ur Leukocyte Esterase (NEGATIVE) Urine RBC (0-5/HPF) Urine WBC (0-5/HPF) Ur Squamous Epith Cells (0-5/HPF) Urine Bacteria (None) Ur Culture Indicated? Urine Test (Negative) MDM Narrative Medical decision making narrative: This is a 38 year female, homeless, who presents with her significant other with skin lesions on her buttocks and inner thighs, right lateral ankle drainage and skin lesions and hematuria. Patient reports LMP was 03/22/19 and reports sexually active at this time. She was evaluated at [facility] emergency room 2 days ago with same chief complaints. CT of abdomen pelvis was done at that time with negative findings for renal mass, kidney stones. Patient's abdomen was soft and none painful to palpate, with normal bowel sounds in all quadrants. There was no leukocytosis with normal lactate. There was no flank pain for assessment and not consistent with pyelonephritis. Urine test is questionable contaminated sample with squamous epithelial cells, 3+ blood, urine RBC, urine WBC of 1 to 5. Urine test is being cultured at this time. During pelvic exam, noticed dried blood in her perineum area and noticed small amount of dark blood in vaginally canal and appears to be the patient is having menstrual period. The findings were shared with the patient. Patient had not sampler pickup the antibiotic medication that was prescribed by [facility] Emergency room 2 days ago for possible cellulitis. Patient is being treated with Keflex q.i.d. does for 7 days patient exam for cellulitis coverage and possible UTI treatment. Provided with home wound care supplies and advised to keep the dressing clean and intact. Patient advised to follow up with her primary care physician and Care Management next week for follow-up. Patient advised to follow up with CT IVP as [facility] emergency room suggested if patient continues to have hematuria after her period is over. Return precautions were discussed with the patient and patient verbalized understanding. Patient and significant other agree with treatment plan. <Dylan Hull, DO - Last Filed: 04/19/19 06:39> Lab Data Labs: Lab Results 04/15/19 04/15/19 04/15/19 Range/Units 16:30 16:38 16:44 WBC 8.5 (4.5-11.0) X10^3/uL RBC 4.80 (4.0-5.2) X10^6/uL Hgb 13.1 (12.0-16.0) g/dL Hct 39.8 (36-46) % MCV 82.8 (80-100) fL MCH 27.3 (26-34) PG MCHC 33.0 (30-36) % RDW 15.7 H (11.6-14.8) % Plt Count 245 (150-400) X10^3/uL Neut % (Auto) 66.1 (50-75) % Lymph % (Auto) 26.1 (25-40) % Weld % (Auto) 5.5 (3-14) % Eos % (Auto) 1.7 L (2-4) % Baso % (Auto) 0.6 (0-2) % Neut # (Auto) 5600 (4731-7375) /uL Lymph # (Auto) 2200 (2482-2320) /uL Weld # (Auto) 500 (0-900) /uL Eos # (Auto) 100 (0-450) /uL Baso # (Auto) 100 (0-100) /uL Lactate Lipase (23-300) U/L Procalcitonin (<0.5) ng/mL Urine Color Yellow Urine Appearance Clear Urine pH 5.5 (4.5-8.0) Ur Specific [place] 1.010 (1.000-1.035) Urine Protein Trace H (Negative) Urine Glucose (UA) Negative (Negative) g/dL Urine Ketones Negative (NEGATIVE) Urine Occult Blood 3+ H (Negative) Urine Nitrate Negative (Negative) Urine Bilirubin Negative (NEGATIVE) Urine Urobilinogen 0.2 (0.2) E.U./dL Ur Leukocyte Esterase Trace H (NEGATIVE) Urine RBC 10-30/hpf H (0-5/HPF) Urine WBC 1-5/hpf (0-5/HPF) Ur Squamous Epith Cells 5-10 /hpf H (0-5/HPF) Urine Bacteria None seen (None) Ur Culture Indicated? Cult not indicated Urine Test Negative (Negative) 04/15/19 04/15/19 04/15/19 Range/Units 16:44 16:44 16:44 WBC (4.5-11.0) X10^3/uL RBC (4.0-5.2) X10^6/uL Hgb (12.0-16.0) g/dL Hct (36-46) % MCV (80-100) fL MCH (26-34) PG MCHC (30-36) % RDW (11.6-14.8) % Plt Count (150-400) X10^3/uL Neut % (Auto) (50-75) % Lymph % (Auto) (25-40) % Weld % (Auto) (3-14) % Eos % (Auto) (2-4) % Baso % (Auto) (0-2) % Neut # (Auto) (4873-6013) /uL Lymph # (Auto) (2810-6063) /uL Weld # (Auto) (0-900) /uL Eos # (Auto) (0-450) /uL Baso # (Auto) (0-100) /uL Lactate Cancelled Lipase (23-300) U/L Procalcitonin < 0.05 Cancelled (<0.5) ng/mL Urine Color Urine Appearance Urine pH (4.5-8.0) Ur Specific [place] (1.000-1.035) Urine Protein (Negative) Urine Glucose (UA) (Negative) g/dL Urine Ketones (NEGATIVE) Urine Occult Blood (Negative) Urine Nitrate (Negative) Urine Bilirubin (NEGATIVE) Urine Urobilinogen (0.2) E.U./dL Ur Leukocyte Esterase (NEGATIVE) Urine RBC (0-5/HPF) Urine WBC (0-5/HPF) Ur Squamous Epith Cells (0-5/HPF) Urine Bacteria (None) Ur Culture Indicated? Urine Test (Negative) 04/15/19 04/15/19 Range/Units 17:03 17:05 WBC (4.5-11.0) X10^3/uL RBC (4.0-5.2) X10^6/uL Hgb (12.0-16.0) g/dL Hct (36-46) % MCV (80-100) fL MCH (26-34) PG MCHC (30-36) % RDW (11.6-14.8) % Plt Count (150-400) X10^3/uL Neut % (Auto) (50-75) % Lymph % (Auto) (25-40) % Weld % (Auto) (3-14) % Eos % (Auto) (2-4) % Baso % (Auto) (0-2) % Neut # (Auto) (9666-5646) /uL Lymph # (Auto) (9709-1174) /uL Weld # (Auto) (0-900) /uL Eos # (Auto) (0-450) /uL Baso # (Auto) (0-100) /uL Lactate 1.7 Lipase 86 (23-300) U/L Procalcitonin (<0.5) ng/mL Urine Color Urine Appearance Urine pH (4.5-8.0) Ur Specific [place] (1.000-1.035) Urine Protein (Negative) Urine Glucose (UA) (Negative) g/dL Urine Ketones (NEGATIVE) Urine Occult Blood (Negative) Urine Nitrate (Negative) Urine Bilirubin (NEGATIVE) Urine Urobilinogen (0.2) E.U./dL Ur Leukocyte Esterase (NEGATIVE) Urine RBC (0-5/HPF) Urine WBC (0-5/HPF) Ur Squamous Epith Cells (0-5/HPF) Urine Bacteria (None) Ur Culture Indicated? Urine Test (Negative) <Jasiel Leonardo, - Last Filed: 04/23/19 00:07> Lab Data Labs: Lab Results 04/15/19 04/15/19 04/15/19 Range/Units 16:30 16:38 16:44 WBC 8.5 (4.5-11.0) X10^3/uL RBC 4.80 (4.0-5.2) X10^6/uL Hgb 13.1 (12.0-16.0) g/dL Hct 39.8 (36-46) % MCV 82.8 (80-100) fL MCH 27.3 (26-34) PG MCHC 33.0 (30-36) % RDW 15.7 H (11.6-14.8) % Plt Count 245 (150-400) X10^3/uL Neut % (Auto) 66.1 (50-75) % Lymph % (Auto) 26.1 (25-40) % Weld % (Auto) 5.5 (3-14) % Eos % (Auto) 1.7 L (2-4) % Baso % (Auto) 0.6 (0-2) % Neut # (Auto) 5600 (3110-1524) /uL Lymph # (Auto) 2200 (2726-4733) /uL Weld # (Auto) 500 (0-900) /uL Eos # (Auto) 100 (0-450) /uL Baso # (Auto) 100 (0-100) /uL Lactate Lipase (23-300) U/L Procalcitonin (<0.5) ng/mL Urine Color Yellow Urine Appearance Clear Urine pH 5.5 (4.5-8.0) Ur Specific [place] 1.010 (1.000-1.035) Urine Protein Trace H (Negative) Urine Glucose (UA) Negative (Negative) g/dL Urine Ketones Negative (NEGATIVE) Urine Occult Blood 3+ H (Negative) Urine Nitrate Negative (Negative) Urine Bilirubin Negative (NEGATIVE) Urine Urobilinogen 0.2 (0.2) E.U./dL Ur Leukocyte Esterase Trace H (NEGATIVE) Urine RBC 10-30/hpf H (0-5/HPF) Urine WBC 1-5/hpf (0-5/HPF) Ur Squamous Epith Cells 5-10 /hpf H (0-5/HPF) Urine Bacteria None seen (None) Ur Culture Indicated? Cult not indicated Urine Test Negative (Negative) 04/15/19 04/15/19 04/15/19 Range/Units 16:44 16:44 16:44 WBC (4.5-11.0) X10^3/uL RBC (4.0-5.2) X10^6/uL Hgb (12.0-16.0) g/dL Hct (36-46) % MCV (80-100) fL MCH (26-34) PG MCHC (30-36) % RDW (11.6-14.8) % Plt Count (150-400) X10^3/uL Neut % (Auto) (50-75) % Lymph % (Auto) (25-40) % Weld % (Auto) (3-14) % Eos % (Auto) (2-4) % Baso % (Auto) (0-2) % Neut # (Auto) (4805-6615) /uL Lymph # (Auto) (0873-2957) /uL Weld # (Auto) (0-900) /uL Eos # (Auto) (0-450) /uL Baso # (Auto) (0-100) /uL Lactate Cancelled Lipase (23-300) U/L Procalcitonin < 0.05 Cancelled (<0.5) ng/mL Urine Color Urine Appearance Urine pH (4.5-8.0) Ur Specific [place] (1.000-1.035) Urine Protein (Negative) Urine Glucose (UA) (Negative) g/dL Urine Ketones (NEGATIVE) Urine Occult Blood (Negative) Urine Nitrate (Negative) Urine Bilirubin (NEGATIVE) Urine Urobilinogen (0.2) E.U./dL Ur Leukocyte Esterase (NEGATIVE) Urine RBC (0-5/HPF) Urine WBC (0-5/HPF) Ur Squamous Epith Cells (0-5/HPF) Urine Bacteria (None) Ur Culture Indicated? Urine Test (Negative) 04/15/19 04/15/19 Range/Units 17:03 17:05 WBC (4.5-11.0) X10^3/uL RBC (4.0-5.2) X10^6/uL Hgb (12.0-16.0) g/dL Hct (36-46) % MCV (80-100) fL MCH (26-34) PG MCHC (30-36) % RDW (11.6-14.8) % Plt Count (150-400) X10^3/uL Neut % (Auto) (50-75) % Lymph % (Auto) (25-40) % Weld % (Auto) (3-14) % Eos % (Auto) (2-4) % Baso % (Auto) (0-2) % Neut # (Auto) (2558-3584) /uL Lymph # (Auto) (1867-8967) /uL Weld # (Auto) (0-900) /uL Eos # (Auto) (0-450) /uL Baso # (Auto) (0-100) /uL Lactate 1.7 Lipase 86 (23-300) U/L Procalcitonin (<0.5) ng/mL Urine Color Urine Appearance Urine pH (4.5-8.0) Ur Specific [place] (1.000-1.035) Urine Protein (Negative) Urine Glucose (UA) (Negative) g/dL Urine Ketones (NEGATIVE) Urine Occult Blood (Negative) Urine Nitrate (Negative) Urine Bilirubin (NEGATIVE) Urine Urobilinogen (0.2) E.U./dL Ur Leukocyte Esterase (NEGATIVE) Urine RBC (0-5/HPF) Urine WBC (0-5/HPF) Ur Squamous Epith Cells (0-5/HPF) Urine Bacteria (None) Ur Culture Indicated? Urine Test (Negative) Discharge Plan Departure Patient Disposition: Home Clinical Impression: Cellulitis Qualifiers: Site of cellulitis: extremity Site of cellulitis of extremity: lower extremity Laterality: right Qualified Code(s): L03.115 - Cellulitis of right lower limb Skin ulcer Qualifiers: Non-pressure ulcer stage: limited to breakdown of skin Qualified Code(s): L98.491 - Non-pressure chronic ulcer of skin of other sites limited to breakdown of skin Discharge Date/Time: 04/15/19 18:56 Instructions: DI for Cellulitis -- Adult Activity Restrictions/Additional Instructions: You have been diagnosed with excoriated ulcers in inner thighs, cellulitis on left lateral ankle from venous stasis, menstrual period. There was no increase in white blood cell counts as severe infection. Blood tests were unremarkable. What to do: *Take your medications as directed. Please continue to take Keflex for next 7 days 4 times a day. Try to keep her wound clean and dry as much as you can. *Follow up with your primary care provider in 2-3 days at [facility] clinic and patient case coordinator, call for an appointment to arrange wound care, future CT IVP on upper urinary tract as [facility] ER suggested. Let them know you were seen in the ED and that we asked you to be seen in follow up. *Return to ED if you have any new, worsening, or concerning symptoms, such as [chest pain, breathing difficulty, severe pain/swelling/redness to right ankle and inner thighs, unable to tolerate fluids, or any acute concerns]. Prescriptions: No Action metformin [Glucophage XR] 500 MG tablet extended release 24 hr 2,000 mg PO DAILY Qty: 0 RF: 0 cetirizine 10 MG tablet 10 mg PO DAILY Qty: 0 RF: 0 montelukast 10 MG tablet 10 mg PO DAILY Qty: 0 RF: 0 meloxicam 15 MG tablet 15 mg PO DAILY Qty: 0 RF: 0 cyclobenzaprine 10 mg tablet 10 mg PO TID PRN (Reason: Muscle Spasm) RF: 0 pioglitazone 15 mg tablet 15 mg PO DAILY RF: 0 acetaminophen [Pain Reliever] 325 mg tablet 325 mg PO Q4H MDD 6 tabs PRN (Reason: Fever Or Pain) RF: 0 clonazepam 1 mg tablet 0.5 - 1 mg PO PRN MDD 1.5 mg PRN (Reason: severe anxiety) RF: 0 venlafaxine 150 mg capsule,extended release 24hr 150 mg PO DAILY RF: 0 cephalexin 500 mg capsule 500 mg PO QID RF: 0 PrePlus 27 mg iron- 1 mg tablet 1 tab PO DAILY RF: 0 <Jasiel Leonardo DO - Last Filed: 04/23/19 00:07> Sign Out Provider Sign Out Attestation: I was available for consultation during this patient's emergency department encounter
[2019-04-15 18:10] LABS: Appearance Urine UA CLEAR; Bacteria Urine None Seen; Bilirubin Urine UA NEGATIVE (NEGATIVE); Color Urine UA YELLOW; Glucose Urine UA NEGATIVE (Negative); Ketones Urine UA NEGATIVE (NEGATIVE); Leukocyte Esterase Urine UA TRACE (NEGATIVE); Nitrite Urine UA NEGATIVE (Negative); Occult Blood Urine UA 3+ (Negative); Protein Urine UA TRACE (Negative); Urobilinogen Urine UA 0.2 E.U./dL (0.2)
[2019-04-15 18:11] LABS: pH Urine UA 5.5 (4.5-8.0)
[2019-04-15 18:17] LABS: RBC Urine 10-30/HPF (0-5/HPF); Squamous Epithelial Cell Urine 5-10 /HPF (0-5/HPF); WBC Urine 1-5/HPF (0-5/HPF)
[2019-04-15 18:18] LABS: Culture Indicated Urine Cult Not Indicated
[2019-04-15 18:45] VITALS: BP 152/75; PULSE 87; RESP 17; O2SAT 96
[2019-04-15] MEDS: cephALEXin 250 MG CAPSULE 500 MG PO (18:47)
--- NOTE | 2019-04-15 18:53 | PC.NURSE ---
pt has a number of small 1cm and less lesions clustered on the lateral right ankle and lesions x 1.5cm to both medial upper thighs, all are pink with no purulent discharge at this time, surrounding tissue is pink, all lesions are painful
== END 2019-04-15 18:56 | disposition home or self-care (01) ==
PROVIDERS: Emergency Provider Nurse Practitioner Family
DX: L03.115 Cellulitis of right lower limb (principal); L98.491 Non-pressure chronic ulcer of skin of other sites limited to breakdown of skin
CPT/HCPCS: 81001; 81025; 83605; 83690; 84145; 85025; 87070; 87075; 87077; 87147; 87186; 87205; 99283

== ENCOUNTER → 2022-11-18 08:52 | Outpatient (CLI) | payer OTHER, MEDICAID, SELFPAY | PROVIDERS: PCP Family Medicine; Referring Provider Family Medicine; Visit Provider Surgery | DX: I89.0 Lymphedema, not elsewhere classified (principal); L97.822 Non-pressure chronic ulcer of other part of left lower leg with fat layer exposed; L97.812 Non-pressure chronic ulcer of other part of right lower leg with fat layer exposed; S70.312A Abrasion, left thigh, initial encounter; R60.0 Localized edema; M79.604 Pain in right leg; M79.605 Pain in left leg | CPT/HCPCS: 11042; 11045; 87070; 87075; 87077; 87147; 87186; 87205; 99204; 99213 ==

== ENCOUNTER → 2022-11-21 14:13 | Outpatient (CLI) | payer OTHER, MEDICAID, SELFPAY | PROVIDERS: PCP Family Medicine; Referring Provider Student in an Organized Health Care Education/Training Program; Visit Provider Nurse Practitioner Family | DX: I89.0 Lymphedema, not elsewhere classified (principal); L97.812 Non-pressure chronic ulcer of other part of right lower leg with fat layer exposed; L97.822 Non-pressure chronic ulcer of other part of left lower leg with fat layer exposed; S70.312A Abrasion, left thigh, initial encounter; M79.605 Pain in left leg; M79.604 Pain in right leg | CPT/HCPCS: 29581 ==

== ENCOUNTER → 2022-11-25 14:24 | Outpatient (CLI) | payer OTHER, MEDICAID, SELFPAY | PROVIDERS: PCP Family Medicine; Referring Provider Family Medicine; Visit Provider Surgery | DX: I89.0 Lymphedema, not elsewhere classified (principal); L97.811 Non-pressure chronic ulcer of other part of right lower leg limited to breakdown of skin; L97.812 Non-pressure chronic ulcer of other part of right lower leg with fat layer exposed; S80.812A Abrasion, left lower leg, initial encounter; S70.311A Abrasion, right thigh, initial encounter | CPT/HCPCS: 97597; 97598; 99213 ==

== ENCOUNTER → 2022-11-28 14:40 | Outpatient (CLI) | payer OTHER, MEDICAID, SELFPAY | PROVIDERS: PCP Family Medicine; Referring Provider Student in an Organized Health Care Education/Training Program; Visit Provider Nurse Practitioner Family | DX: I89.0 Lymphedema, not elsewhere classified (principal); L97.822 Non-pressure chronic ulcer of other part of left lower leg with fat layer exposed; L97.812 Non-pressure chronic ulcer of other part of right lower leg with fat layer exposed; S70.312A Abrasion, left thigh, initial encounter | CPT/HCPCS: 99214 ==

== ENCOUNTER → 2022-12-02 13:40 | Outpatient (CLI) | payer OTHER, MEDICAID, SELFPAY | PROVIDERS: PCP Family Medicine; Referring Provider Family Medicine; Visit Provider Surgery | DX: I89.0 Lymphedema, not elsewhere classified (principal); L97.822 Non-pressure chronic ulcer of other part of left lower leg with fat layer exposed; L97.812 Non-pressure chronic ulcer of other part of right lower leg with fat layer exposed; G60.9 Hereditary and idiopathic neuropathy, unspecified; S70.312A Abrasion, left thigh, initial encounter; S80.811A Abrasion, right lower leg, initial encounter; M79.604 Pain in right leg | CPT/HCPCS: 11042; 11045; 97598; 99213 ==

== ENCOUNTER → 2022-12-05 13:50 | Outpatient (CLI) | payer OTHER, MEDICAID, SELFPAY | PROVIDERS: PCP Family Medicine; Referring Provider Family Medicine; Visit Provider Physician Assistant | DX: I89.0 Lymphedema, not elsewhere classified (principal); S81.802A Unspecified open wound, left lower leg, initial encounter; S81.801A Unspecified open wound, right lower leg, initial encounter; S70.312A Abrasion, left thigh, initial encounter; R60.0 Localized edema | CPT/HCPCS: 99213 ==

== ENCOUNTER → 2022-12-09 13:44 | Outpatient (CLI) | payer OTHER, MEDICAID, SELFPAY | PROVIDERS: PCP Family Medicine; Referring Provider Student in an Organized Health Care Education/Training Program; Visit Provider Surgery | DX: L97.312 Non-pressure chronic ulcer of right ankle with fat layer exposed (principal); L97.322 Non-pressure chronic ulcer of left ankle with fat layer exposed; I89.0 Lymphedema, not elsewhere classified; L97.112 Non-pressure chronic ulcer of right thigh with fat layer exposed; L97.122 Non-pressure chronic ulcer of left thigh with fat layer exposed; E11.622 Type 2 diabetes mellitus with other skin ulcer; J44.9 Chronic obstructive pulmonary disease, unspecified; R32 Unspecified urinary incontinence | CPT/HCPCS: 11042; 11045 ==

== ENCOUNTER → 2022-12-11 10:43 | Outpatient (CLI) | payer OTHER, MEDICAID, SELFPAY | PROVIDERS: PCP Family Medicine; Referring Provider Student in an Organized Health Care Education/Training Program; Visit Provider Surgery | DX: I89.0 Lymphedema, not elsewhere classified (principal); L97.821 Non-pressure chronic ulcer of other part of left lower leg limited to breakdown of skin; R60.0 Localized edema; S70.312A Abrasion, left thigh, initial encounter | CPT/HCPCS: 99213 ==

== ENCOUNTER → 2022-12-16 14:24 | Outpatient (CLI) | payer OTHER, MEDICAID, SELFPAY | PROVIDERS: PCP Family Medicine; Referring Provider Student in an Organized Health Care Education/Training Program; Visit Provider Surgery | DX: I89.0 Lymphedema, not elsewhere classified (principal); E11.628 Type 2 diabetes mellitus with other skin complications; L97.812 Non-pressure chronic ulcer of other part of right lower leg with fat layer exposed; S70.312A Abrasion, left thigh, initial encounter; F17.210 Nicotine dependence, cigarettes, uncomplicated; E11.40 Type 2 diabetes mellitus with diabetic neuropathy, unspecified; R60.0 Localized edema; M79.604 Pain in right leg | CPT/HCPCS: 99213 ==

== ENCOUNTER → 2022-12-19 14:02 | Outpatient (CLI) | payer OTHER, MEDICAID, SELFPAY | PROVIDERS: PCP Family Medicine; Referring Provider Family Medicine; Visit Provider Physician Assistant | DX: I89.0 Lymphedema, not elsewhere classified (principal); L97.812 Non-pressure chronic ulcer of other part of right lower leg with fat layer exposed; S80.812A Abrasion, left lower leg, initial encounter; R60.0 Localized edema; M79.604 Pain in right leg | CPT/HCPCS: 99213 ==

== ENCOUNTER → 2022-12-23 14:52 | Outpatient (CLI) | payer OTHER, MEDICAID, SELFPAY | PROVIDERS: PCP Family Medicine; Referring Provider Student in an Organized Health Care Education/Training Program; Visit Provider Surgery | DX: I89.0 Lymphedema, not elsewhere classified (principal); L97.812 Non-pressure chronic ulcer of other part of right lower leg with fat layer exposed; F17.210 Nicotine dependence, cigarettes, uncomplicated; M79.604 Pain in right leg | CPT/HCPCS: 99213 ==

== ENCOUNTER → 2022-12-26 09:28 | Outpatient (CLI) | payer OTHER, MEDICAID, SELFPAY | PROVIDERS: PCP Family Medicine; Referring Provider Student in an Organized Health Care Education/Training Program; Visit Provider Physician Assistant | DX: I89.0 Lymphedema, not elsewhere classified (principal); L97.812 Non-pressure chronic ulcer of other part of right lower leg with fat layer exposed | CPT/HCPCS: 99213 ==

== ENCOUNTER → 2022-12-31 13:22 | Outpatient (CLI) | payer OTHER, MEDICAID, SELFPAY | PROVIDERS: PCP Family Medicine; Referring Provider Student in an Organized Health Care Education/Training Program; Visit Provider Surgery | DX: I89.0 Lymphedema, not elsewhere classified (principal) | CPT/HCPCS: 99212; 99213 ==

== ENCOUNTER → 2023-03-26 14:26 | Outpatient (CLI) | payer OTHER, MEDICAID, SELFPAY | PROVIDERS: PCP Family Medicine; Visit Provider Surgery | DX: I89.0 Lymphedema, not elsewhere classified (principal); L89.893 Pressure ulcer of other site, stage 3; L97.812 Non-pressure chronic ulcer of other part of right lower leg with fat layer exposed; L97.822 Non-pressure chronic ulcer of other part of left lower leg with fat layer exposed; F17.210 Nicotine dependence, cigarettes, uncomplicated; L53.9 Erythematous condition, unspecified; M79.604 Pain in right leg; M79.605 Pain in left leg; E11.622 Type 2 diabetes mellitus with other skin ulcer | CPT/HCPCS: 11042; 11045; 87070; 87075; 87077; 87147; 87186; 87205; 99213 ==

== ENCOUNTER → 2023-03-30 15:11 | Outpatient (CLI) | payer OTHER, MEDICAID, SELFPAY | PROVIDERS: PCP Family Medicine; Referring Provider Student in an Organized Health Care Education/Training Program; Visit Provider Surgery | DX: L97.811 Non-pressure chronic ulcer of other part of right lower leg limited to breakdown of skin (principal); L97.821 Non-pressure chronic ulcer of other part of left lower leg limited to breakdown of skin | CPT/HCPCS: 99212 ==

== ENCOUNTER → 2023-04-01 14:08 | Outpatient (CLI) | payer OTHER, MEDICAID, SELFPAY | PROVIDERS: PCP Family Medicine; Referring Provider Student in an Organized Health Care Education/Training Program; Visit Provider Surgery | DX: I89.0 Lymphedema, not elsewhere classified (principal); L97.812 Non-pressure chronic ulcer of other part of right lower leg with fat layer exposed; L97.822 Non-pressure chronic ulcer of other part of left lower leg with fat layer exposed; L89.893 Pressure ulcer of other site, stage 3; L03.116 Cellulitis of left lower limb; R60.0 Localized edema; L53.9 Erythematous condition, unspecified | CPT/HCPCS: 11042; 11045 ==

== ENCOUNTER → 2023-04-03 13:47 | Outpatient (CLI) | payer OTHER, MEDICAID, SELFPAY | PROVIDERS: PCP Family Medicine; Referring Provider Student in an Organized Health Care Education/Training Program; Visit Provider Physician Assistant | DX: L89.893 Pressure ulcer of other site, stage 3 (principal); I89.0 Lymphedema, not elsewhere classified; L53.9 Erythematous condition, unspecified; L85.3 Xerosis cutis; L08.9 Local infection of the skin and subcutaneous tissue, unspecified; Z79.2 Long term (current) use of antibiotics | CPT/HCPCS: 99215 ==

== ENCOUNTER 2023-04-04 19:19 | Observation (INO) | payer OTHER, MEDICAID, SELFPAY ==
[2023-04-04] VITALS (7 sets, daily range): BP systolic 107–121; BP diastolic 57–65; PULSE 85–100; RESP 16–18; TEMP 36.4–36.8; O2SAT 93–99; BMI 62.6; BMI 61.1
--- NOTE | 2023-04-04 19:51 | ED.WOUNDLAC ---
HPI - Wound/Laceration General Chief Complaint: Wound/Laceration Stated Complaint: wounds are infected with MRSA/ waist down Time Seen by Provider: 04/04/23 19:29 Source: patient Mode of arrival: Wheelchair History of Present Illness HPI narrative: 42-year-old patient with a history of diabetes, obesity, homelessness, chronic wound issues due to restrictions of living in her car and no access to showers and ability to appropriately care for her chronic wounds. She is been seen at [facility] multiple times. She seeks primary care at [facility] in [place]. She is seen as part of the [facility] family Medicine residency Community Medicine program with providers coming to help with wound care in her van. She was seen at [facility] on March 12 and prescribed amoxicillin. On 03/16 at [facility] ER she was diagnosed with a left lower leg cellulitis was given doxycycline and returned on 03/24 with no improvement. She is seen by wound care at [facility] and a note from Infectious Disease noting polymicrobial infections with notes to schedule an appointment with infectious disease provider. She had blood work done at [facility] on April 03 which showed urinary tract infection with [phone] colony-forming units likely Proteus with cultures pending, relatively benign CBC and CMP with no evidence of overwhelming infection or multi system organ injury. She currently is on doxycycline and has been on this consistently, was called in a prescription for cefdinir by Dr. Lawson, infectious disease doctor, but has not had a chance to pick that up. She comes here today because 1 of her outpatient doctors told her she needed to be admitted. Despite multiple contacts with medical system she is not improving and in fact may be worsening. Consideration of hospitalization for continued antibiotics, excellent wound care and assistance that is not going to be accessible to her with her difficult socioeconomic situation. She currently describes no fevers, cough, chills, palpitations, abdominal pain. She notes that she frequently has both urine and fecal incontinence as she has difficulty getting out of her car and into an available bathroom facility Related Data Home Medications Medication Instructions Recorded Confirmed metformin 500 mg tablet,extended 2,000 mg PO DAILY ##0 12/15/11 04/15/19 release 24 hr (Glucophage XR) cetirizine 10 mg tablet 10 mg PO DAILY ##0 04/07/17 04/15/19 meloxicam 15 mg tablet 15 mg PO DAILY ##0 04/07/17 04/15/19 montelukast 10 mg tablet 10 mg PO DAILY ##0 04/07/17 04/15/19 acetaminophen 325 mg tablet (Pain 325 mg PO Q4H PRN Fever Or Pain 04/15/19 04/15/19 Reliever (acetaminophen)) cephalexin 500 mg capsule 500 mg PO QID 04/15/19 clonazepam 1 mg tablet 0.5 - 1 mg PO PRN PRN severe 04/15/19 04/15/19 anxiety cyclobenzaprine 10 mg tablet 10 mg PO TID PRN Muscle Spasm 04/15/19 04/15/19 pioglitazone 15 mg tablet 15 mg PO DAILY 04/15/19 04/15/19 vitamin with calcium 1 tab PO DAILY 04/15/19 04/15/19 no.72-iron 27 mg-folic acid 1 mg tablet (PrePlus) venlafaxine 150 mg 150 mg PO DAILY 04/15/19 04/15/19 capsule,extended release 24 hr Allergies Allergy/AdvReac Type Severity Reaction Status Date / Time amoxicillin [From AUGMENTIN] Allergy Unknown Verified 04/04/23 19:35 clavulanic acid Allergy Unknown Verified 04/04/23 19:35 [From AUGMENTIN] Sulfa (Sulfonamide Allergy Unknown Verified 04/04/23 19:35 Antibiotics) [SULFA (SULFONAMIDE ANTIBIOTICS)] Review of Systems Review of Systems Narrative: Pertinent positive and negative findings as per HPI Patient History Medical History (Updated 04/04/23 @ 22:00 by Galilea Rodríguez MD) Asthma Diabetes Edema Fibromyalgia Homeless Insomnia Neuropathy Venous stasis Surgical History No pertinent past surgical history Social History household members: significant other housing: homeless Smoking Status: Current every day smoker Smoking Status: Current every day smoker alcohol intake frequency: holidays/special occasions only Substance Use Type: does not use Exam Initial Vital Signs Initial Vital Signs: Vital Signs Temperature 98.3 F 04/04/23 19:22 Pulse Rate 100 H 04/04/23 19:22 Respiratory Rate 16 04/04/23 19:22 Blood Pressure 121/57 L 04/04/23 19:22 Pulse Oximetry 94 04/04/23 19:22 Oxygen Delivery Method Room Air 04/04/23 19:22 General: Chronically ill-appearing, in no acute distress. Able to give a complete and coherent history. Well-nourished well-developed with BMI of 63. HEENT: Moist mucous membranes, normal sclera with reactive pupils, Respiratory: Lungs are clear to auscultation, no wheezing no rales no rhonchi. Full and symmetrical air movement Cardiac: Regular rate and rhythm no murmurs no bruits Abdomen: Soft, obese, nontender, good bowel tones, no flank pain. Minor excoriation mid abdomen in the middle of pannus fold Skin: Chronic lymphedema with multiple superficial wounds over both lower extremities, pressure sores with skin breakdown posterior thighs and inner thighs as well as intertriginous area. Wound care dressings are in place over lower extremities bilaterally. They are removed and show chronic wounds with poor healing with no obvious worsening infection or discharge Neurologic: Grossly neurologically intact with no obvious asymmetries or abnormalities Psych: Cooperative, appropriate insight and affect Course Orders Ordered: ED Orders 04/04/23 19:48 Complete Blood Count AUTO DIFF Stat 04/04/23 20:10 Blood Culture Stat Comprehensive Metabolic Panel Stat Lactate (Lactic Acid) Stat Lipase Stat Magnesium Stat Procalcitonin Stat Vital Signs Vital signs: Vital Signs - 8 hr 04/04/23 19:22 04/04/23 19:32 04/04/23 19:32 Temperature 98.3 F Pulse Rate 100 H 99 H Respiratory Rate 16 18 Blood Pressure 121/57 L 121/57 L Pulse Oximetry 94 93 Oxygen Delivery Method Room Air 04/04/23 20:30 04/04/23 21:00 Temperature Pulse Rate 91 H 90 Respiratory Rate Blood Pressure Pulse Oximetry 97 98 Oxygen Delivery Method MDM - Wound/Laceration Lab Data 04/04/23 19:48 04/04/23 20:10 Labs: Lab Results 04/04/23 04/04/23 04/04/23 Range/Units 19:48 20:10 20:10 WBC 7.5 (4.5-11.0) X10^3/uL RBC 4.02 (4.0-5.2) X10^6/uL Hgb 11.6 L (12.0-16.0) g/dL Hct 35.2 L (36-46) % MCV 87.5 (80-100) fL MCH 28.8 (26-34) PG MCHC 32.9 (30-36) % RDW 14.1 (11.6-14.8) % Plt Count 207 (150-400) X10^3/uL Neut % (Auto) 64.0 (50-75) % Lymph % (Auto) 25.8 (25-40) % [place] % (Auto) 4.6 (3-14) % Eos % (Auto) 4.8 H (2-4) % Baso % (Auto) 0.8 (0-2) % Neut # (Auto) 4800 (8808-7820) /uL Lymph # (Auto) 1900 (5196-0379) /uL [place] # (Auto) 300 (0-900) /uL Eos # (Auto) 400 (0-450) /uL Baso # (Auto) 100 (0-100) /uL Sodium 140 (137-145) mmol/L Potassium 3.6 (3.4-5.1) mmol/L Chloride 104 (98-107) mmol/L Carbon Dioxide 29 (22-32) mmol/L BUN 14 (7-17) mg/dL Creatinine 0.87 (0.52-1.04) mg/dL Estimated GFR > 60 (>60) mL/min BUN/Creatinine Ratio 16.1 (6-22) Glucose 125 H (70-100) mg/dL Lactate 1.4 (0.7-2.1) mmol/L Calcium 8.6 (8.4-10.2) mg/dL Magnesium 1.9 (1.6-2.3) mg/dL Total Bilirubin 0.3 (0.2-1.3) mg/dL AST 16 (14-36) IU/L ALT 15 (<35) IU/L Alkaline Phosphatase 97 (38-126) U/L Total Protein 6.5 (6.3-8.2) g/dL Albumin 3.5 (3.5-5.0) g/dL Globulin 3.0 (1.7-4.1) g/dL Albumin/Globulin Ratio 1.2 (1.0-2.8) Lipase 65 (23-300) U/L Procalcitonin 0.06 (<0.5) ng/mL MDM Narrative Medical decision making narrative: CC: Chronic wounds, not healing Complicating co-morbidities: Homelessness, morbid obesity, multiple contacts with medical system without improvement Data collected from: patient, Social determinants of health that may influence the patients condition: Homelessness Medical records reviewed: Extensive records from [facility] all summarized in the HPI are reviewed Differential considered: Chronic wound infections, lymphedema, urinary tract infection, sepsis, significantly complicating social situation Exam documented above, pertinent findings include: Chronic findings with none of her wounds improving, all slightly erythematous Lab Test results independently reviewed as above. Pertinent findings: CBC is unremarkable with white count at 7.5 Chemistries are reassuring with glucose minimally elevated at 125 Urine shows squamous cells red cells trace leukocyte esterase blood trace protein Consultations:DR Liriano Treatments: Wound care, IV vancomycin, IV ceftriaxone, IV Lasix Re-evaluations: Lab work and plans for hospitalization reviewed with the patient. She is amenable to admission Discussion: Care is reviewed with the hospitalist. Given her multiple recurrent episodes of ER visits with no evidence of improvement of any of her symptoms despite antibiotics and outpatient wound care we will admit her to [facility] for leg elevation, wound care, gentle diuresis, continued antibiotics and social service consult. Discharge Plan Departure Patient Disposition: Admitted As Inpatient Clinical Impression: Cellulitis and abscess of lower extremity, Decubitus skin ulcer, Lymphedema, Impaired mobility, Homeless Admit Date/Time: 04/04/23 21:24 Admit Provider: Vicente Liriano
[2023-04-04 19:57] LABS: Add Manual Diff / Slide Review NO; Basophils Absolute Auto 100 /uL (0-100); Basophils Percent Auto 0.8 % (0-2); Eosinophils Absolute Auto 400 /uL (0-450); Eosinophils Percent Auto 4.8 % (2-4); Hematocrit 35.2 % (36-46); Hemoglobin 11.6 g/dL (12.0-16.0); Lymphocytes Absolute Auto 1900 /uL (1100-4500); Lymphocytes Percent Auto 25.8 % (25-40); Mean Corpuscular HGB Conc 32.9 % (30-36); Mean Corpuscular Hemoglobin 28.8 PG (26-34); Mean Corpuscular Volume 87.5 fL (80-100); Monocytes Absolute Auto 300 /uL (0-900); Monocytes Percent Auto 4.6 % (3-14); Neutrophils Absolute Auto 4800 /uL (1500-7000); Platelet Count 207 X10^3/uL (150-400); Red Blood Cell Count 4.02 X10^6/uL (4.0-5.2); Red Cell Distribution Width 14.1 % (11.6-14.8); White Blood Cell Count 7.5 X10^3/uL (4.5-11.0)
[2023-04-04 20:29] LABS: Alanine Aminotransferase 15 IU/L (<35); Albumin 3.5 g/dL (3.5-5.0); Albumin Globulin Ratio 1.2 (1.0-2.8); Alkaline Phosphatase 97 U/L (38-126); Aspartate Aminotransferase 16 IU/L (14-36); BUN Creatinine Ratio 16.1 (6-22); Bilirubin Total 0.3 mg/dL (0.2-1.3); Blood Urea Nitrogen 14 mg/dL (7-17); Calcium 8.6 mg/dL (8.4-10.2); Carbon Dioxide 29 mmol/L (22-32); Chloride 104 mmol/L (98-107); Estimated Glomerular Filt Rate > 60 mL/min (>60); Glucose 125 mg/dL (70-100); HEMOLYSIS < 15 (0-50); Lipase 65 U/L (23-300); Magnesium 1.9 mg/dL (1.6-2.3); Potassium 3.6 mmol/L (3.4-5.1); Sodium 140 mmol/L (137-145); Total Protein 6.5 g/dL (6.3-8.2)
[2023-04-04 20:30] LABS: Lactate (Lactic Acid) 1.4 mmol/L (0.7-2.1)
[2023-04-04 20:45] LABS: Procalcitonin 0.06 ng/mL (<0.5)
[2023-04-04] MEDS: HYDROCODONE/ACET 5/325 TABLET 2 TAB PO (23:23)
[2023-04-04] MEDS: FUROSEMIDE 40 MG/4 ML VIAL 20 MG IV (23:24)
[2023-04-04] MEDS: cefTRIAXone 2,000 MG in SODIUM CHLORIDE 0.9% 100 ML 200 MG IV (23:24)
[2023-04-05] MEDS: VANCOMYCIN 2,000 MG/400 ML PIGGYBACK 200 MG IV ×3 (00:20→22:56)
--- NOTE | 2023-04-05 00:26 | PC.NURSE ---
Left lower calf
--- NOTE | 2023-04-05 00:30 | PC.NURSE ---
Left upper thigh posterior
--- NOTE | 2023-04-05 00:31 | PC.NURSE ---
Right lower leg
--- NOTE | 2023-04-05 00:33 | PC.NURSE ---
Right posterior thigh
--- NOTE | 2023-04-05 00:34 | PC.NURSE ---
0030- Patient pictures of wounds uploaded. Wounds are weeping serous fluid. Dry absorbent chux under each leg and elevated on pillows. Bed Cradle in place to keep pressure off legs. Will monitor.
[2023-04-05] MEDS: ALBUTEROL 2.5 MG/3 ML NEB (ADULT) INH ×3 (03:23→17:10)
[2023-04-05] MEDS: HYDROCODONE/ACET 5/325 TABLET 2 TAB PO ×3 (03:46→16:31)
[2023-04-05 04:30] VITALS: BP 102/63; PULSE 84; RESP 18; TEMP 36.7; O2SAT 93
[2023-04-05 05:05] LABS: Add Manual Diff / Slide Review NO; Basophils Absolute Auto 0 /uL (0-100); Basophils Percent Auto 0.3 % (0-2); Eosinophils Absolute Auto 300 /uL (0-450); Eosinophils Percent Auto 3.5 % (2-4); Hematocrit 34.9 % (36-46); Hemoglobin 11.4 g/dL (12.0-16.0); Lymphocytes Absolute Auto 1700 /uL (1100-4500); Lymphocytes Percent Auto 19.2 % (25-40); Mean Corpuscular HGB Conc 32.8 % (30-36); Mean Corpuscular Hemoglobin 28.8 PG (26-34); Mean Corpuscular Volume 87.7 fL (80-100); Monocytes Absolute Auto 600 /uL (0-900); Monocytes Percent Auto 7.1 % (3-14); Neutrophils Absolute Auto 6100 /uL (1500-7000); Neutrophils Percent Auto 69.9 % (50-75); Platelet Count 189 X10^3/uL (150-400); Red Blood Cell Count 3.98 X10^6/uL (4.0-5.2); Red Cell Distribution Width 14.3 % (11.6-14.8); White Blood Cell Count 8.7 X10^3/uL (4.5-11.0)
[2023-04-05 05:42] LABS: BUN Creatinine Ratio 18.5 (6-22); Blood Urea Nitrogen 15 mg/dL (7-17); Carbon Dioxide 29 mmol/L (22-32); Chloride 102 mmol/L (98-107); Estimated Glomerular Filt Rate > 60 mL/min (>60); Glucose 141 mg/dL (70-100); HEMOLYSIS < 15 (0-50); Potassium 3.7 mmol/L (3.4-5.1); Sodium 138 mmol/L (137-145)
--- NOTE | 2023-04-05 07:14 | P.HP_ITS ---
History of Present Illness History of Present Illness Date Patient Seen: 04/04/23 Chief complaint: wounds are infected with MRSA/ waist down Narrative: 42 y/o unfortunate lady, morbidly obese, homeless, living in a car in deplorable conditions, with chronic b/l leg wounds and numerous ED visits, presented with b/l leg cellulitis requiring iv abx. Not septic. PFSH Medical History Asthma Diabetes Edema Fibromyalgia Homeless Insomnia Neuropathy Venous stasis Surgical History No pertinent past surgical history Social History household members: significant other housing: homeless Smoking Status: Current every day smoker Meds Home Medications and Allergies Home Medications Medication Instructions Recorded Confirmed Type metformin 500 mg tablet,extended 2,000 mg PO DAILY ##0 12/15/11 04/04/23 History release 24 hr (Glucophage XR) cetirizine 10 mg tablet 10 mg PO DAILY ##0 04/07/17 04/04/23 History montelukast 10 mg tablet 10 mg PO DAILY ##0 04/07/17 04/04/23 History acetaminophen 325 mg tablet (Pain 325 mg PO Q4H PRN Fever Or Pain 04/15/19 04/15/19 History Reliever (acetaminophen)) clonazepam 1 mg tablet 0.5 - 1 mg PO PRN PRN severe 04/15/19 04/04/23 History anxiety pioglitazone 15 mg tablet 15 mg PO DAILY 04/15/19 04/04/23 History venlafaxine 150 mg 150 mg PO DAILY 04/15/19 04/04/23 History capsule,extended release 24 hr Allergies Allergy/AdvReac Type Severity Reaction Status Date / Time amoxicillin [From AUGMENTIN] Allergy Unknown Verified 04/04/23 19:35 clavulanic acid Allergy Unknown Verified 04/04/23 19:35 [From AUGMENTIN] Sulfa (Sulfonamide Allergy Unknown Verified 04/04/23 19:35 Antibiotics) [SULFA (SULFONAMIDE ANTIBIOTICS)] Review of Systems Constitutional Comments: no fever or chills Cardiovascular Comments: w/o chest pain or palpitations Respiratory Comments: chronically short of breath with activity Gastrointestinal Comments: w/o pain Genitourinary Comments: has dysuria Exam Vital Signs (past 8 hours): - 04/05/23 04:30 Temperature 98.0 F Pulse Rate 84 Respiratory Rate 18 Blood Pressure 102/63 Pulse Oximetry 93 Oxygen Delivery Method Room Air Const Other: laying in bed in no distress, morbidly obese [facility] Other: oral crowding Eyes Pupils: PERRL EOM: EOM intact bilaterally Resp Other: normal respiratory effort Cardio Other: RRR GI Other: obese Skin Other: b/l lower leg cellulitis, multiple wounds Neuro Other: w/o focal deficits Psych Other: appropriate mood and affect, lucid Objective Labs 04/05/23 04:40 04/05/23 04:40 Labs: Laboratory Results - last 24 hr 04/04/23 04/04/23 04/04/23 19:48 20:10 20:10 WBC 7.5 RBC 4.02 Hgb 11.6 L Hct 35.2 L MCV 87.5 MCH 28.8 MCHC 32.9 RDW 14.1 Plt Count 207 Neut % (Auto) 64.0 Lymph % (Auto) 25.8 [place] % (Auto) 4.6 Eos % (Auto) 4.8 H Baso % (Auto) 0.8 Neut # (Auto) 4800 Lymph # (Auto) 1900 [place] # (Auto) 300 Eos # (Auto) 400 Baso # (Auto) 100 Sodium 140 Potassium 3.6 Chloride 104 Carbon Dioxide 29 BUN 14 Creatinine 0.87 Estimated GFR > 60 BUN/Creatinine Ratio 16.1 Glucose 125 H Lactate 1.4 Calcium 8.6 Magnesium 1.9 Total Bilirubin 0.3 AST 16 ALT 15 Alkaline Phosphatase 97 Total Protein 6.5 Albumin 3.5 Globulin 3.0 Albumin/Globulin Ratio 1.2 Lipase 65 Procalcitonin 0.06 04/05/23 04/05/23 04:40 04:40 WBC 8.7 RBC 3.98 L Hgb 11.4 L Hct 34.9 L MCV 87.7 MCH 28.8 MCHC 32.8 RDW 14.3 Plt Count 189 Neut % (Auto) 69.9 Lymph % (Auto) 19.2 L [place] % (Auto) 7.1 Eos % (Auto) 3.5 Baso % (Auto) 0.3 Neut # (Auto) 6100 Lymph # (Auto) 1700 [place] # (Auto) 600 Eos # (Auto) 300 Baso # (Auto) 0 Sodium 138 Potassium 3.7 Chloride 102 Carbon Dioxide 29 BUN 15 Creatinine 0.81 Estimated GFR > 60 BUN/Creatinine Ratio 18.5 Glucose 141 H Lactate Calcium 9.0 Magnesium Total Bilirubin AST ALT Alkaline Phosphatase Total Protein Albumin Globulin Albumin/Globulin Ratio Lipase Procalcitonin Assessment & Plan Assessment & Plan narrative: 1. Leg Cellulitis, b/l - Vancomycin - wound care 2. DM - Metformin, Januvia, CCD 3. Homelesness - for possible placement 4. Anxiety / Depression - Venlafaxine, Xanax 5. Fibromyalgia / Neuropathy - Tylenol, Flexeril, [place] 6. Asthma - Singulair, Albuterol, Claritine DVT prophylaxis - Lovenox
[2023-04-05] MEDS: ENOXAPARIN 40 MG/0.4 ML SYRINGE SUBCUT ×2 (08:37→21:03)
[2023-04-05] MEDS: MONTELUKAST 10 MG TABLET PO (08:38)
[2023-04-05] MEDS: LORATADINE 10 MG TABLET PO (08:38)
[2023-04-05] MEDS: METFORMIN XR 500 MG TABLET 2000 MG PO (08:38)
[2023-04-05] MEDS: MELOXICAM 7.5 MG TABLET 15 MG PO (08:38)
[2023-04-05] MEDS: VENLAFAXINE ER 75 MG CAP 150 MG PO (08:38)
[2023-04-05] MEDS: NICOTINE 21 MG PATCH TOP (08:38)
[2023-04-05 09:31] VITALS: PULSE 82; RESP 18; O2SAT 92
--- NOTE | 2023-04-05 11:06 | CM.DANOTE ---
Addendum entered by Olya Jones R.N. 04/05/23 15:43: Met with patient again to fine tune CM assessment. She states that her van is parked in [place] at a case maker house where she is looking after the 2 cats that live in the van her emotional support animals. Patient states her SMI CM is Xiomara Baker at [facility] in [facility]. She also states she has wound care scheduled at the [facility] OP wound center tomorrow at 1500. Call to Celia in OP clinic at 4600, left for her. Original Note: Reviewed chart with existing information, and patient discussed in multidisciplinary rounds this morning. Met with patient and introduced to care coordination and discharge planning. They agree to assessment. Pt is a 42 year old admitted for cellulitis, MRSA, established wounds to lower extremities. States she lives in her van with her 2 cats by choice and has been working with [facility] on finding housing, had a ?cabin? but it was given to an alternate homeless person. States she has reached out to [facility] previously but denies due to enforcement of ?part-time work requirement? which she states she cannot do. States she is disabled but has not yet applied for SSDI. Has her mobile phone in her hand and has contacts in phone to advocate for herself but states she has been frustrated by the processes. Uses her Medicaid benefit for medical transport to save on gas for her van. States she has established wound care at [place] [facility] clinic. Plan: IV antibiotics, wound care evaluation and coordination PCP: Osman Mario last seen ? a while ago?, Dr. Granda ([place]) DME: None currently Payer: Medicaid Barriers: MRSA infection with current IV ABX vancomycin, wound care/incontinence, morbid obesity with questionable mobility, self-care for skin. Olya Jones RN, CM Discharge Planning/Care Management CM Discharge Assessment Start: 04/05/23 10:54 Freq: Status: Active Protocol: Document 04/05/23 10:55 BQ (Rec: 04/05/23 10:58 BQ [id number]) Discharge Planning Assessment Assigned Radiologic Technology Teacher Olya Jones RN, CM Advance Directives? No History Provided By Patient Comment Unknown Prior Living Arrangements Homeless Household Members other Comment Lives in driveable van with 2 cats Type of transporation used prior to Drives own vehicle admit Independent with ADL's No: Wound care Is patient alert and oriented? Yes Needs Assistance With Grooming Caregiver for Another Cats Community Services used prior to Transportation,Wound Care admission: Barriers to Discharge No Discharge Plan Home Community Services Wound Care Referrals Initiated Other Additional Comment TBD Whiteboard Updated in Patient Room with Yes name and ext. # of Radiologic Technology Teacher Review Status In Process Next Review Type Continued Stay Review
[2023-04-05 13:45] VITALS: BP 101/57; PULSE 84; RESP 18; O2SAT 94
[2023-04-05] MEDS: CYCLOBENZAPRINE 10 MG TABLET PO ×2 (16:31→21:02)
--- NOTE | 2023-04-05 17:00 | PM.PN.1 ---
Subjective Subjective Interval history: 42-year-old female with chronic bilateral lower extremity leg wounds, known MRSA, diabetes, class 3 obesity, asthma who lives in her car with her 2 cats. She presented with bilateral lower extremity cellulitis and was admitted overnight for ongoing care. Patient complains of bilateral lower extremity pain which is uncontrolled with hydrocodone. She is asking to have her medications adjusted. She reports no significant shortness of breath above baseline. She smokes 2 packs of cigarettes daily. She states she is been homeless for the last 5 years, since her mother . She is been on a wait list for low-income housing but does not know where she is on the list. She reported on admission that she does sometimes struggle with incontinence of urine and feces due to difficulties with mobility getting out of her van and getting to a bathroom. Exam Vital Signs (past 8 hours): - 04/05/23 09:31 04/05/23 13:45 Pulse Rate 82 84 Respiratory Rate 18 18 Blood Pressure 101/57 L Pulse Oximetry 92 94 Oxygen Delivery Method Room Air Oxygen Flow Rate 0 Oxygen Delivery Method Room Air Oxygen Flow Rate 0 Narrative Exam Narrative: GEN: Middle-aged female, Alert and oriented x 3, NAD HEENT:NC, Face symmetric, facial hair is present on the chin CHEST: Respiratory excursions symmetric, mild scattered expiratory wheezes CV: RRR, no M/R/G ABD: Soft, nontender,, BT present in all 4 quadrants, body habitus limits exam EXTR: warm, well perfused, no C/C, bilateral venous stasis changes with dermatitis/peeling skin, warmth and erythema noted to bilateral legs SKIN: warm and dry, no rash NEURO: Alert and oriented x 3, nonfocal Objective Labs 04/05/23 04:40 04/05/23 04:40 Labs: Laboratory Results - last 24 hr 04/04/23 04/04/23 04/04/23 19:48 20:10 20:10 WBC 7.5 RBC 4.02 Hgb 11.6 L Hct 35.2 L MCV 87.5 MCH 28.8 MCHC 32.9 RDW 14.1 Plt Count 207 Neut % (Auto) 64.0 Lymph % (Auto) 25.8 [place] % (Auto) 4.6 Eos % (Auto) 4.8 H Baso % (Auto) 0.8 Neut # (Auto) 4800 Lymph # (Auto) 1900 [place] # (Auto) 300 Eos # (Auto) 400 Baso # (Auto) 100 Sodium 140 Potassium 3.6 Chloride 104 Carbon Dioxide 29 BUN 14 Creatinine 0.87 Estimated GFR > 60 BUN/Creatinine Ratio 16.1 Glucose 125 H Lactate 1.4 Calcium 8.6 Magnesium 1.9 Total Bilirubin 0.3 AST 16 ALT 15 Alkaline Phosphatase 97 Total Protein 6.5 Albumin 3.5 Globulin 3.0 Albumin/Globulin Ratio 1.2 Lipase 65 Procalcitonin 0.06 04/05/23 04/05/23 04:40 04:40 WBC 8.7 RBC 3.98 L Hgb 11.4 L Hct 34.9 L MCV 87.7 MCH 28.8 MCHC 32.8 RDW 14.3 Plt Count 189 Neut % (Auto) 69.9 Lymph % (Auto) 19.2 L [place] % (Auto) 7.1 Eos % (Auto) 3.5 Baso % (Auto) 0.3 Neut # (Auto) 6100 Lymph # (Auto) 1700 [place] # (Auto) 600 Eos # (Auto) 300 Baso # (Auto) 0 Sodium 138 Potassium 3.7 Chloride 102 Carbon Dioxide 29 BUN 15 Creatinine 0.81 Estimated GFR > 60 BUN/Creatinine Ratio 18.5 Glucose 141 H Lactate Calcium 9.0 Magnesium Total Bilirubin AST ALT Alkaline Phosphatase Total Protein Albumin Globulin Albumin/Globulin Ratio Lipase Procalcitonin [facility] Medical History Asthma Diabetes Edema Fibromyalgia Homeless Insomnia Neuropathy Venous stasis Surgical History No pertinent past surgical history Social History household members: other housing: homeless Smoking Status: Current every day smoker Assessment & Plan Assessment & Plan narrative: 1. Bilateral lower extremity cellulitis Patient previously has grown Pseudomonas and MRSA from right leg wounds in November of this year, and Enterobacter and MRSA from left leg wound on March 26. Both the Pseudomonas from earlier this year and the enterobactor from earlier this month were sensitive to Levaquin as well as Zosyn. Current culture was resistant to ceftriaxone. MRSA was resistant to clindamycin on her most recent culture. As the patient is amoxicillin allergic, will plan to add a fluoroquinolone (Levaquin) for further treatment. Continue vancomycin. 2. Diabetes mellitus type 2 Continue current medications (metformin, Actos). Fingerstick blood sugars have been well controlled. 3. Depression/anxiety Continue venlafaxine and clonazepam. 4. Fibromyalgia/peripheral neuropathy Continue venlafaxine. 5. Asthma No exacerbation. Continue Singulair and Zyrtec. 6. Class 3 obesity BMI is 61.1. Would greatly benefit from weight reduction 7. Anemia Hemoglobin is stable at 11.4 today. 8. Homelessness Per multidisciplinary rounds, patient has good understanding of community resources and is able to access regular medical care despite living in her van. 9. Recent UTI Will not repeat a UA at this time as it is likely low yield. Additionally, she should be well covered with present antibiotics. Code status Full Prophylaxis Receiving b.i.d. Lovenox 40 mg Disposition Pending
[2023-04-05 17:18] VITALS: PULSE 82; RESP 18; O2SAT 97
[2023-04-05] MEDS: levoFLOXacin 750 MG/150 ML PIGGYBACK 100 MG IV (18:34)
[2023-04-05 20:00] VITALS: BP 124/59; PULSE 84; RESP 18; TEMP 36.7; O2SAT 94
[2023-04-05] MEDS: OXYCODONE IR 5 MG TABLET PO (21:02)
[2023-04-05] MEDS: ACETAMINOPHEN 325 MG TABLET 650 MG PO (21:03)
[2023-04-05] MEDS: OXYCODONE IR 10 MG TABLET PO (22:56)
[2023-04-05] MEDS: diphenhydrAMINE 25 MG TABLET PO (23:31)
[2023-04-06] MEDS: OXYCODONE IR 5 MG TABLET PO ×3 (02:08→08:29)
[2023-04-06] MEDS: ALBUTEROL 2.5 MG/3 ML NEB (ADULT) INH (02:35)
[2023-04-06 04:00] VITALS: BP 114/52; PULSE 84; RESP 18; TEMP 36.6; O2SAT 92
[2023-04-06 06:52] LABS: Add Manual Diff / Slide Review NO; Basophils Absolute Auto 0 /uL (0-100); Basophils Percent Auto 0.4 % (0-2); Eosinophils Absolute Auto 200 /uL (0-450); Eosinophils Percent Auto 4.2 % (2-4); Hematocrit 32.6 % (36-46); Lymphocytes Absolute Auto 1600 /uL (1100-4500); Lymphocytes Percent Auto 27.3 % (25-40); Mean Corpuscular HGB Conc 33.8 % (30-36); Mean Corpuscular Hemoglobin 29.3 PG (26-34); Mean Corpuscular Volume 86.8 fL (80-100); Monocytes Absolute Auto 400 /uL (0-900); Monocytes Percent Auto 7.5 % (3-14); Neutrophils Absolute Auto 3500 /uL (1500-7000); Neutrophils Percent Auto 60.6 % (50-75); Platelet Count 177 X10^3/uL (150-400); Red Blood Cell Count 3.76 X10^6/uL (4.0-5.2); Red Cell Distribution Width 14.1 % (11.6-14.8); White Blood Cell Count 5.8 X10^3/uL (4.5-11.0)
[2023-04-06 07:02] LABS: BUN Creatinine Ratio 20.3 (6-22); Blood Urea Nitrogen 14 mg/dL (7-17); Calcium 8.6 mg/dL (8.4-10.2); Carbon Dioxide 27 mmol/L (22-32); Chloride 103 mmol/L (98-107); Estimated Glomerular Filt Rate > 60 mL/min (>60); Glucose 119 mg/dL (70-100); HEMOLYSIS < 15 (0-50); Potassium 3.8 mmol/L (3.4-5.1); Sodium 136 mmol/L (137-145)
[2023-04-06] MEDS: ENOXAPARIN 40 MG/0.4 ML SYRINGE SUBCUT (08:30)
[2023-04-06] MEDS: LORATADINE 10 MG TABLET PO (08:30)
[2023-04-06] MEDS: METFORMIN XR 500 MG TABLET 2000 MG PO (08:32)
[2023-04-06] MEDS: NICOTINE 21 MG PATCH TOP (08:32)
[2023-04-06] MEDS: MELOXICAM 7.5 MG TABLET 15 MG PO (08:32)
[2023-04-06] MEDS: VENLAFAXINE ER 75 MG CAP 150 MG PO (08:33)
[2023-04-06] MEDS: MONTELUKAST 10 MG TABLET PO (08:33)
[2023-04-06 08:51] VITALS: BP 114/66; PULSE 79; RESP 18; TEMP 36.2; O2SAT 96
--- NOTE | 2023-04-06 09:12 | P.DS_ITS ---
History of Present Illness History of Present Illness Date Patient Seen: 04/06/23 Time Patient Seen: 09:12 Chief complaint: wounds are infected with MRSA/ waist down Narrative: Per admitting provider, 42 y/o unfortunate lady, morbidly obese, homeless, living in a car in deplorable conditions, with chronic b/l leg wounds and numerous ED visits, presented with b/l leg cellulitis requiring iv abx. Not septic. Discharge Providers Provider Date of admission: 04/04/23 21:24 Discharge Date: 04/06/23 Primary care physician: Osman Mario MD Discharge provider: Jose De Luna DO Summary Hospital Course Discharge Diagnosis: 1. Bilateral lower extremity cellulitis with chronic venous stasis dermatitis 2. Diabetes mellitus type 2 3. Depression/anxiety 4. Fibromyalgia/peripheral neuropathy 5. Asthma 6. Class 3 obesity 7. Anemia 8. Homelessness 9. Recent UTI Hospital Course: This is a 42 year old female admitted with a bilateral lower extremity cellulitis. She has a number of difficulties complicating management including anxiety and depression, fibromyalgia and neuropathy, obesity, chronic LE edema. She had improvement with lower extremity swelling with antibiotic administration, and on the day of discharge had no tenderness on exam or redness. She has some chronic venous stasis. Given her medical allergies and prior cultures, she was discharged on another 5 days of levofloxacin and linzeolid. There is a small (<0.5% risk) change of seretonin syndrome with her venlafaxine, but these benefits of antibiotic administration orally outweight the risks at this time. Course duration will be minimized to 5 days after discharge to further minimize risk. Time Spent with Patient Time spent: Greater than 30 minutes Exam Vital Signs (past 8 hours): - 04/06/23 02:36 04/06/23 04:00 04/06/23 08:51 Temperature 97.8 F 97.2 F L Pulse Rate 84 79 Respiratory Rate 18 18 Blood Pressure 114/52 L 114/66 Pulse Oximetry 92 96 Oxygen Delivery Method Room Air Oxygen Flow Rate 0 0 Oxygen Delivery Method Room Air Oxygen Flow Rate 0 Narrative Exam Narrative: GEN: Middle-aged female, Alert and oriented x 3, NAD HEENT:NC, Face symmetric, facial hair is present on the chin CHEST: Respiratory excursions symmetric, mild scattered expiratory wheezes CV: RRR, no M/R/G ABD: Soft, nontender,, BT present in all 4 quadrants, body habitus limits exam EXTR: warm, well perfused, no C/C, bilateral venous stasis changes with dermati tis/peeling skin, no erythema or warmth on exam. SKIN: warm and dry, no rash NEURO: Alert and oriented x 3, nonfocal Objective Labs 04/06/23 05:20 04/06/23 05:20 Labs: Laboratory Results - last 24 hr 04/06/23 04/06/23 05:20 05:20 WBC 5.8 RBC 3.76 L Hgb 11.0 L Hct 32.6 L MCV 86.8 MCH 29.3 MCHC 33.8 RDW 14.1 Plt Count 177 Neut % (Auto) 60.6 Lymph % (Auto) 27.3 [place] % (Auto) 7.5 Eos % (Auto) 4.2 H Baso % (Auto) 0.4 Neut # (Auto) 3500 Lymph # (Auto) 1600 [place] # (Auto) 400 Eos # (Auto) 200 Baso # (Auto) 0 Sodium 136 L Potassium 3.8 Chloride 103 Carbon Dioxide 27 BUN 14 Creatinine 0.69 Estimated GFR > 60 BUN/Creatinine Ratio 20.3 Glucose 119 H Calcium 8.6 PFSH Medical History Asthma Diabetes Edema Fibromyalgia Homeless Insomnia Neuropathy Venous stasis Surgical History No pertinent past surgical history Social History household members: other housing: homeless Smoking Status: Current every day smoker Discharge Plan Discharge Plan Patient Disposition: Home Provider Discharge Comment: You were admitted to the hospital with cellulitis. This improved with antibiotic therapies. Please follow up with your primary care provider and wound care team. You will be on another 5 days of antibiotics. Nursing Discharge Comment: Remember to follow-up at your wound care appointment on Thursday the at 2:15. Discharge orders & Medications Prescriptions: New linezolid 600 mg tablet 600 mg PO Q12H 5 Days Qty: 10 0RF levofloxacin 750 mg tablet 750 mg PO DAILY 5 Days Qty: 5 0RF oxycodone 5 mg tablet 5 mg PO Q6H PRN (Reason: pain) 7 Days Qty: 25 0RF Continued metformin [Glucophage XR] 500 MG tablet extended release 24 hr 2,000 mg PO DAILY Qty: 0 cetirizine 10 MG tablet 10 mg PO DAILY Qty: 0 montelukast 10 MG tablet 10 mg PO DAILY Qty: 0 gabapentin 600 mg tablet 1,800 mg PO BID tizanidine 4 mg tablet 8 mg PO 3XD PRN (Reason: muscle spasm) quetiapine 100 mg tablet 300 mg PO ONCE PM diphenhydramine HCl [Banophen] 25 mg capsule 25 - 50 mg PO Q4H PRN (Reason: itch) ferrous sulfate [FeroSul] 325 mg (65 mg iron) tablet 325 mg PO DAILY albuterol sulfate 90 mcg/actuation HFA aerosol inhaler 2 puff INHALATION Q4H PRN (Reason: wheezing) clotrimazole [Antifungal (clotrimazole)] 1 % cream 1 applic topical BID rosuvastatin 10 mg tablet 10 mg PO QPM pioglitazone 15 mg tablet 15 mg PO DAILY clonazepam 1 mg tablet 0.5 - 1 mg PO PRN MDD 1.5 mg PRN (Reason: severe anxiety) Patient Comments: TAKE 1 2 TO 1 (ONE HALF TO ONE) TABLET BY MOUTH NEEDED FOR SEVERE ANXIETY NOT TO EXCEED 1.5 MG DAILY venlafaxine 150 mg capsule,extended release 24hr 150 mg PO DAILY Patient Comments: TAKE 1 CAPSULE BY MOUTH ONCE DAILY Follow up/Referrals: Osman Mario MD [Primary Care Provider] - Diet/Activity/Treatments Diet: Diet as Tolerated Activity: As tolerated no restrictions. Visit Report/Discharge Packet Stand Alone Forms: Patient Portal/API, Stroke Signs & Symptoms Discharge Data Primary Care Provider: Osman Mario Attending Provider: Vicente Liriano Admit Date/Time: 04/04/23 21:24
[2023-04-06 11:12] LABS: Vancomycin Trough 17.7 ug/mL (10-20)
[2023-04-06] MEDS: OXYCODONE IR 10 MG TABLET PO (11:26)
[2023-04-06] MEDS: VANCOMYCIN 2,000 MG/400 ML PIGGYBACK 200 MG IV (11:27)
--- NOTE | 2023-04-06 14:01 | CM.DPC ---
Addendum entered by LORIE Stein 04/06/23 14:43: ADD: Return call from Sofia at [facility] confirming [employer] can transport pt at 1515. MASON updated RN and pt. BF Original Note: DCP Discharge Home Per MD, pt has her recommended IV-Abx doses and to transition to orals and medically stable to d/c today with close outpt f/u. Per UR RN, pt meets OBS criteria and was also sent to EHR and confirmed OBS status and does not meet criteria for Inpt status. SW spoke to [facility] as pt is an established pt in their outpt clinic and they cancelled pt's appointment for today 04/06 and pt is now scheduled this week on Thu04/08/23 at 1415 for follow up. SW met bedside with pt and updated on above and pt was hopeful to remain in the hospital longer but SW explained OBS Status and no longer meeting medical criteria for hospital level of care. SW provided [facility] [employer] information and number to call but pt states she plans to attempt calling contacts for a ride from the hospital. Staff offered to assist pt with showering prior to d/c but pt not yet agreeable. SW returned and pt states she has not been able to contact anyone for transport and does not remember the exact address of the home ([facility] [address] [place]) but knows it's in [place] off [facility]. MASON called [employer] and left ms for Xiomara [place]. MASON called pt's primary contact Valerie [phone] and Valerie was able to provide the address [id number] [address] [facility] [address] and will follow up with pt after discharge as Valerie works in the community with homeless people. MASON called Medicaid transport and confirmed pt has transportation benefits and completed the Medicaid transport form and faxed requested transport from [facility] to [facility] [place] to her van in [place]. MASON updated RN and they will get pt ready for discharge and await return call from [employer] for time of transport today. LORIE Stein
--- NOTE | 2023-04-06 17:12 | PC.NURSE ---
Discharge Note Patient A&O, VSS, RA, no complaints of pain/discomfort. Patient agreeable to discharge plan. Discharge packet reviewed with patient, all questions/concerns addressed. PIV/TELE discontinued. Patient able to dress self and pack all belongings. 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 Patient agreeable.
== END 2023-04-06 15:15 | disposition home or self-care (01) ==
LOC: ED 19:29 → AC 22:00
PROVIDERS: Family Medicine; Admitting Provider Internal Medicine; Emergency Provider Emergency Medicine; PCP Family Medicine; Referring Provider Emergency Medicine; Visit Provider Internal Medicine
DX: L03.116 Cellulitis of left lower limb (principal); L03.115 Cellulitis of right lower limb; E66.01 Morbid (severe) obesity due to excess calories; Z68.44 Body mass index [BMI] 60.0-69.9, adult; Z71.3 Dietary counseling and surveillance; E11.9 Type 2 diabetes mellitus without complications; Z79.84 Long term (current) use of oral hypoglycemic drugs; Z59.02 Unsheltered homelessness; F41.9 Anxiety disorder, unspecified; F32.A Depression, unspecified; M79.7 Fibromyalgia; J45.909 Unspecified asthma, uncomplicated; D64.9 Anemia, unspecified; I87.2 Venous insufficiency (chronic) (peripheral)
CPT/HCPCS: 36415; 80048; 80053; 80202; 82962; 83605; 83690; 83735; 84145; 85025; 87040; 94640; 96365; 96366; 96367; 96372; 96375; 99283; G0378; J0696; J1650; J1940; J1956; J7613

== ENCOUNTER → 2023-04-08 14:19 | Outpatient (CLI) | payer OTHER, MEDICAID, SELFPAY ==
[2023-04-04 22:45] VITALS: BMI 61.1
== END ==
PROVIDERS: PCP Family Medicine; Referring Provider Student in an Organized Health Care Education/Training Program; Visit Provider Surgery
DX: L97.312 Non-pressure chronic ulcer of right ankle with fat layer exposed (principal); L97.322 Non-pressure chronic ulcer of left ankle with fat layer exposed; I89.0 Lymphedema, not elsewhere classified; L89.893 Pressure ulcer of other site, stage 3; L03.116 Cellulitis of left lower limb; R60.0 Localized edema
CPT/HCPCS: 11042; 11045

== ENCOUNTER → 2023-04-10 14:06 | Outpatient (CLI) | payer OTHER, MEDICAID, SELFPAY ==
[2023-04-04 22:45] VITALS: BMI 61.1
== END ==
PROVIDERS: PCP Family Medicine; Referring Provider Student in an Organized Health Care Education/Training Program; Visit Provider Physician Assistant
DX: I89.0 Lymphedema, not elsewhere classified (principal); L97.812 Non-pressure chronic ulcer of other part of right lower leg with fat layer exposed; L97.822 Non-pressure chronic ulcer of other part of left lower leg with fat layer exposed
CPT/HCPCS: 29581

== ENCOUNTER → 2023-04-13 13:56 | Outpatient (CLI) | payer OTHER, MEDICAID, SELFPAY ==
[2023-04-04 22:45] VITALS: BMI 61.1
== END ==
PROVIDERS: PCP Family Medicine; Referring Provider Family Medicine; Visit Provider Surgery
DX: I89.0 Lymphedema, not elsewhere classified (principal); L97.812 Non-pressure chronic ulcer of other part of right lower leg with fat layer exposed; L97.822 Non-pressure chronic ulcer of other part of left lower leg with fat layer exposed; R60.0 Localized edema; M79.604 Pain in right leg; M79.605 Pain in left leg
CPT/HCPCS: 29581

== ENCOUNTER → 2023-04-15 14:14 | Outpatient (CLI) | payer OTHER, MEDICAID, SELFPAY ==
[2023-04-04 22:45] VITALS: BMI 61.1
== END ==
PROVIDERS: PCP Family Medicine; Referring Provider Student in an Organized Health Care Education/Training Program; Visit Provider Surgery
DX: I89.0 Lymphedema, not elsewhere classified (principal); L97.112 Non-pressure chronic ulcer of right thigh with fat layer exposed; L89.893 Pressure ulcer of other site, stage 3; R32 Unspecified urinary incontinence; I87.2 Venous insufficiency (chronic) (peripheral); E11.42 Type 2 diabetes mellitus with diabetic polyneuropathy; J44.9 Chronic obstructive pulmonary disease, unspecified; F17.210 Nicotine dependence, cigarettes, uncomplicated; F31.9 Bipolar disorder, unspecified; E66.09 Other obesity due to excess calories; Z68.44 Body mass index [BMI] 60.0-69.9, adult; Z59.02 Unsheltered homelessness; Z91.199 Patient's noncompliance with other medical treatment and regimen due to unspecified reason
CPT/HCPCS: 11042; 11045; 29581; 99213

== ENCOUNTER → 2023-04-17 14:16 | Outpatient (CLI) | payer OTHER, MEDICAID, SELFPAY ==
[2023-04-04 22:45] VITALS: BMI 61.1
== END ==
PROVIDERS: PCP Family Medicine; Referring Provider Student in an Organized Health Care Education/Training Program; Visit Provider Physician Assistant
DX: I89.0 Lymphedema, not elsewhere classified (principal); L97.812 Non-pressure chronic ulcer of other part of right lower leg with fat layer exposed; L89.893 Pressure ulcer of other site, stage 3
CPT/HCPCS: 29581

== ENCOUNTER → 2023-04-20 15:35 | Outpatient (CLI) | payer OTHER, MEDICAID, SELFPAY ==
[2023-04-04 22:45] VITALS: BMI 61.1
== END ==
PROVIDERS: PCP Family Medicine; Referring Provider Student in an Organized Health Care Education/Training Program; Visit Provider Surgery
DX: I89.0 Lymphedema, not elsewhere classified (principal); L97.812 Non-pressure chronic ulcer of other part of right lower leg with fat layer exposed; L89.893 Pressure ulcer of other site, stage 3; R60.0 Localized edema
CPT/HCPCS: 29581

== ENCOUNTER → 2023-04-23 14:15 | Outpatient (CLI) | payer OTHER, MEDICAID, SELFPAY ==
[2023-04-04 22:45] VITALS: BMI 61.1
== END ==
PROVIDERS: PCP Family Medicine; Referring Provider Student in an Organized Health Care Education/Training Program; Visit Provider Surgery
DX: I89.0 Lymphedema, not elsewhere classified (principal); L89.893 Pressure ulcer of other site, stage 3; L97.822 Non-pressure chronic ulcer of other part of left lower leg with fat layer exposed; L97.122 Non-pressure chronic ulcer of left thigh with fat layer exposed; R21 Rash and other nonspecific skin eruption; M79.605 Pain in left leg; M79.604 Pain in right leg
CPT/HCPCS: 29581; 99212; 99213

== ENCOUNTER → 2023-04-27 14:33 | Outpatient (CLI) | payer OTHER, MEDICAID, SELFPAY ==
[2023-04-04 22:45] VITALS: BMI 61.1
== END ==
PROVIDERS: PCP Family Medicine; Referring Provider Student in an Organized Health Care Education/Training Program; Visit Provider Surgery
DX: I89.0 Lymphedema, not elsewhere classified (principal); L97.812 Non-pressure chronic ulcer of other part of right lower leg with fat layer exposed; L89.893 Pressure ulcer of other site, stage 3; L97.122 Non-pressure chronic ulcer of left thigh with fat layer exposed; E11.622 Type 2 diabetes mellitus with other skin ulcer; R60.0 Localized edema; R21 Rash and other nonspecific skin eruption; M79.604 Pain in right leg; L53.9 Erythematous condition, unspecified
CPT/HCPCS: 29581; 87070; 87075; 87077; 87147; 87186; 87205; 99213

== ENCOUNTER → 2023-04-30 14:48 | Outpatient (CLI) | payer OTHER, MEDICAID, SELFPAY ==
[2023-04-04 22:45] VITALS: BMI 61.1
== END ==
PROVIDERS: PCP Family Medicine; Referring Provider Student in an Organized Health Care Education/Training Program; Visit Provider Surgery
DX: I89.0 Lymphedema, not elsewhere classified (principal); L97.812 Non-pressure chronic ulcer of other part of right lower leg with fat layer exposed; R60.0 Localized edema; L89.893 Pressure ulcer of other site, stage 3; R21 Rash and other nonspecific skin eruption
CPT/HCPCS: 29581

== ENCOUNTER → 2023-05-04 14:15 | Outpatient (CLI) | payer OTHER, MEDICAID, SELFPAY ==
[2023-04-04 22:45] VITALS: BMI 61.1
== END ==
PROVIDERS: PCP Family Medicine; Referring Provider Student in an Organized Health Care Education/Training Program; Visit Provider Surgery
DX: I89.0 Lymphedema, not elsewhere classified (principal); L97.112 Non-pressure chronic ulcer of right thigh with fat layer exposed; L97.122 Non-pressure chronic ulcer of left thigh with fat layer exposed; R60.0 Localized edema; L53.9 Erythematous condition, unspecified; R23.4 Changes in skin texture; M79.604 Pain in right leg; M79.605 Pain in left leg
CPT/HCPCS: 11042; 11045; 97597; 97598

== ENCOUNTER → 2023-05-07 15:10 | Outpatient (CLI) | payer OTHER, MEDICAID, SELFPAY ==
[2023-04-04 22:45] VITALS: BMI 61.1
== END ==
PROVIDERS: PCP Family Medicine; Referring Provider Student in an Organized Health Care Education/Training Program; Visit Provider Surgery
DX: I89.0 Lymphedema, not elsewhere classified (principal); L97.812 Non-pressure chronic ulcer of other part of right lower leg with fat layer exposed; L89.893 Pressure ulcer of other site, stage 3; R60.0 Localized edema; L53.9 Erythematous condition, unspecified; R21 Rash and other nonspecific skin eruption
CPT/HCPCS: 29581

== ENCOUNTER → 2023-05-11 14:17 | Outpatient (CLI) | payer OTHER, MEDICAID, SELFPAY ==
[2023-04-04 22:45] VITALS: BMI 61.1
== END ==
PROVIDERS: PCP Family Medicine; Referring Provider Student in an Organized Health Care Education/Training Program; Visit Provider Surgery
DX: I89.0 Lymphedema, not elsewhere classified (principal); L97.812 Non-pressure chronic ulcer of other part of right lower leg with fat layer exposed; L89.893 Pressure ulcer of other site, stage 3; L53.9 Erythematous condition, unspecified; R60.0 Localized edema
CPT/HCPCS: 29581; 99213

== ENCOUNTER → 2023-05-14 14:42 | Outpatient (CLI) | payer OTHER, MEDICAID, SELFPAY ==
[2023-04-04 22:45] VITALS: BMI 61.1
== END ==
PROVIDERS: PCP Family Medicine; Referring Provider Family Medicine; Visit Provider Surgery
DX: I87.2 Venous insufficiency (chronic) (peripheral) (principal); I89.0 Lymphedema, not elsewhere classified; L97.812 Non-pressure chronic ulcer of other part of right lower leg with fat layer exposed; L89.893 Pressure ulcer of other site, stage 3; L53.9 Erythematous condition, unspecified; R21 Rash and other nonspecific skin eruption
CPT/HCPCS: 29581

== ENCOUNTER → 2023-05-18 11:21 | Outpatient (CLI) | payer OTHER, MEDICAID, SELFPAY ==
[2023-04-04 22:45] VITALS: BMI 61.1
== END ==
PROVIDERS: PCP Family Medicine; Referring Provider Student in an Organized Health Care Education/Training Program; Visit Provider Surgery
DX: I89.0 Lymphedema, not elsewhere classified (principal); L97.812 Non-pressure chronic ulcer of other part of right lower leg with fat layer exposed; L89.153 Pressure ulcer of sacral region, stage 3; L53.9 Erythematous condition, unspecified; L97.122 Non-pressure chronic ulcer of left thigh with fat layer exposed; L97.112 Non-pressure chronic ulcer of right thigh with fat layer exposed; R21 Rash and other nonspecific skin eruption
CPT/HCPCS: 11042

== ENCOUNTER → 2023-05-21 14:47 | Outpatient (CLI) | payer OTHER, MEDICAID, SELFPAY ==
[2023-04-04 22:45] VITALS: BMI 61.1
== END ==
PROVIDERS: PCP Family Medicine; Referring Provider Student in an Organized Health Care Education/Training Program; Visit Provider Surgery
DX: I87.2 Venous insufficiency (chronic) (peripheral) (principal); L97.812 Non-pressure chronic ulcer of other part of right lower leg with fat layer exposed; L97.822 Non-pressure chronic ulcer of other part of left lower leg with fat layer exposed; L53.9 Erythematous condition, unspecified; I89.0 Lymphedema, not elsewhere classified; R21 Rash and other nonspecific skin eruption
CPT/HCPCS: 29581

== ENCOUNTER → 2023-05-25 14:29 | Outpatient (CLI) | payer OTHER, MEDICAID, SELFPAY ==
[2023-04-04 22:45] VITALS: BMI 61.1
== END ==
PROVIDERS: PCP Family Medicine; Referring Provider Student in an Organized Health Care Education/Training Program; Visit Provider Surgery
DX: I89.0 Lymphedema, not elsewhere classified (principal); L97.812 Non-pressure chronic ulcer of other part of right lower leg with fat layer exposed; L89.893 Pressure ulcer of other site, stage 3; L97.112 Non-pressure chronic ulcer of right thigh with fat layer exposed; L97.122 Non-pressure chronic ulcer of left thigh with fat layer exposed; R21 Rash and other nonspecific skin eruption; R32 Unspecified urinary incontinence; R46.0 Very low level of personal hygiene; I87.2 Venous insufficiency (chronic) (peripheral); J44.9 Chronic obstructive pulmonary disease, unspecified; F17.210 Nicotine dependence, cigarettes, uncomplicated; F31.9 Bipolar disorder, unspecified; E66.9 Obesity, unspecified; Z68.44 Body mass index [BMI] 60.0-69.9, adult; Z86.14 Personal history of Methicillin resistant Staphylococcus aureus infection; Z59.02 Unsheltered homelessness; Z91.199 Patient's noncompliance with other medical treatment and regimen due to unspecified reason
CPT/HCPCS: 97602; 99213; 99214

== ENCOUNTER → 2023-05-28 14:09 | Outpatient (CLI) | payer OTHER, MEDICAID, SELFPAY ==
[2023-04-04 22:45] VITALS: BMI 61.1
== END ==
PROVIDERS: PCP Family Medicine; Referring Provider Student in an Organized Health Care Education/Training Program; Visit Provider Surgery
DX: I89.0 Lymphedema, not elsewhere classified (principal); L97.812 Non-pressure chronic ulcer of other part of right lower leg with fat layer exposed; R60.0 Localized edema; R21 Rash and other nonspecific skin eruption; L53.9 Erythematous condition, unspecified
CPT/HCPCS: 29581

== ENCOUNTER → 2023-06-01 14:15 | Outpatient (CLI) | payer OTHER, MEDICAID, SELFPAY ==
[2023-04-04 22:45] VITALS: BMI 61.1
== END ==
PROVIDERS: PCP Family Medicine; Referring Provider Student in an Organized Health Care Education/Training Program; Visit Provider Surgery
DX: I89.0 Lymphedema, not elsewhere classified (principal); L89.893 Pressure ulcer of other site, stage 3; L97.812 Non-pressure chronic ulcer of other part of right lower leg with fat layer exposed; L97.822 Non-pressure chronic ulcer of other part of left lower leg with fat layer exposed; R21 Rash and other nonspecific skin eruption; R60.0 Localized edema; L53.9 Erythematous condition, unspecified
CPT/HCPCS: 87070; 87075; 87077; 87147; 87186; 87205; 97602; 99213

== ENCOUNTER → 2023-06-04 14:21 | Outpatient (CLI) | payer OTHER, MEDICAID, SELFPAY ==
[2023-04-04 22:45] VITALS: BMI 61.1
== END ==
PROVIDERS: PCP Family Medicine; Referring Provider Student in an Organized Health Care Education/Training Program; Visit Provider Surgery
DX: I89.0 Lymphedema, not elsewhere classified (principal); L97.812 Non-pressure chronic ulcer of other part of right lower leg with fat layer exposed; L97.822 Non-pressure chronic ulcer of other part of left lower leg with fat layer exposed; R60.0 Localized edema; L53.9 Erythematous condition, unspecified
CPT/HCPCS: 29581

== ENCOUNTER → 2023-06-08 14:07 | Outpatient (CLI) | payer OTHER, MEDICAID, SELFPAY ==
[2023-04-04 22:45] VITALS: BMI 61.1
== END ==
PROVIDERS: PCP Family Medicine; Referring Provider Student in an Organized Health Care Education/Training Program; Visit Provider Surgery
DX: I89.0 Lymphedema, not elsewhere classified (principal); L97.812 Non-pressure chronic ulcer of other part of right lower leg with fat layer exposed; R60.0 Localized edema; L53.9 Erythematous condition, unspecified; L89.893 Pressure ulcer of other site, stage 3
CPT/HCPCS: 29581; 99214

== ENCOUNTER → 2023-06-10 15:08 | Outpatient (CLI) | payer OTHER, MEDICAID, SELFPAY ==
[2023-04-04 22:45] VITALS: BMI 61.1
== END ==
LOC: WC 15:10
PROVIDERS: PCP Family Medicine; Referring Provider Student in an Organized Health Care Education/Training Program; Visit Provider Surgery
DX: I89.0 Lymphedema, not elsewhere classified (principal); L89.893 Pressure ulcer of other site, stage 3; R21 Rash and other nonspecific skin eruption; L53.9 Erythematous condition, unspecified
CPT/HCPCS: 29581; 99212

== ENCOUNTER → 2023-07-27 13:09 | Outpatient (CLI) | payer OTHER, MEDICAID, SELFPAY ==
[2023-04-04 22:45] VITALS: BMI 61.1
== END ==
LOC: WC 13:09
PROVIDERS: PCP Family Medicine; Referring Provider Internal Medicine; Visit Provider Surgery
DX: I89.0 Lymphedema, not elsewhere classified (principal); L97.811 Non-pressure chronic ulcer of other part of right lower leg limited to breakdown of skin; L53.9 Erythematous condition, unspecified; J44.9 Chronic obstructive pulmonary disease, unspecified; R32 Unspecified urinary incontinence; F17.210 Nicotine dependence, cigarettes, uncomplicated; Z91.199 Patient's noncompliance with other medical treatment and regimen due to unspecified reason; E11.622 Type 2 diabetes mellitus with other skin ulcer; I87.2 Venous insufficiency (chronic) (peripheral)
CPT/HCPCS: 29581; 99213